=== PATIENT | female | born 1990 | race African-American/Black ===

== ENCOUNTER 2023-05-19 03:37 | Emergency (ER) | payer OTHER, MEDICARE, MEDICAID, SELFPAY ==
--- NOTE | ~2023-05-19 | CT_ITS ---
EXAMINATION: CT ABDOMEN AND PELVIS WITHOUT CONTRAST CLINICAL INFORMATION: Abdominal pain. COMPARISON: X-ray of the abdomen May 2023 TECHNIQUE: Multidetector volumetric imaging was performed from the superior aspect of the liver through the pubic symphysis. Sagittal and coronal reformatted images were obtained on the technologist's workstation. This CT examination was performed using dose optimization techniques as appropriate, variously including the following: *Automated exposure control *Adjustment of mA and/or kV according to patient size (this includes techniques or standardized protocols for targeted exams where dose is matched to indication/reason for exam; i.e. extremities or head) *Use of iterative reconstruction technique DLP: 606 mGy-cm FINDINGS: LUNG BASES: Bibasilar linear opacities likely atelectasis. LIVER, GALLBLADDER, AND BILIARY TREE: The liver is normal in size, shape, and attenuation. No focal hepatic lesion or biliary ductal dilatation is present. Surgical clips noted in the gallbladder fossa compatible cholecystectomy. PANCREAS: Unremarkable. SPLEEN: Unremarkable. ADRENAL GLANDS: Unremarkable. KIDNEYS AND URETERS: The kidneys are normal in size, shape, and attenuation. No hydronephrosis, hydroureter, or calculi seen. No perinephric stranding. BLADDER: The bladder is moderately distended but otherwise unremarkable. GASTROINTESTINAL TRACT: There is pericolonic streaky density surrounding the distal sigmoid and rectum and borderline thickening of the bowel wall. Findings could reflect colitis.. No diverticula The small and large bowel are otherwise unremarkable. The appendix is unremarkable. Stomach normal ABDOMINAL WALL: No significant hernia is appreciated. LYMPH NODES: Normal. VASCULAR: Unremarkable. PELVIC VISCERA: Unremarkable. OSSEOUS STRUCTURES: Mild spondylosis of the partially visualized distal dorsal spine with small endplate osteophytes CT/CT abdomen pelvis wo IV con IMPRESSION: 1. Findings suspicious for colitis involving the distal sigmoid and rectum. 2. Bibasilar linear opacities likely atelectasis. 3. Status post cholecystectomy. 4. Mild spondylosis of the dorsal spine. Fleischner guidelines were followed.
--- NOTE | ~2023-05-19 | XR_ITS ---
EXAMINATION: XR ABDOMEN KUB CLINICAL INDICATION: Constipation. COMPARISON: None available. TECHNIQUE: AP view of the abdomen. FINDINGS: The bowel gas pattern is normal with no evidence of ileus or obstruction. There is retained stool throughout. No unusual soft tissue calcifications are noted. The bones are unremarkable. XR/XR KUB IMPRESSION: Nonspecific bowel gas pattern. Retained stool throughout.
[2023-05-19 03:46] VITALS: BP 128/70; BP 161/93; PULSE 116; RESP 24; TEMP 36.6; O2SAT 100; O2SAT 98; BMI 35.9
[2023-05-19 03:55] VITALS: BP 161/93; PULSE 116; RESP 20; TEMP 36.6; O2SAT 98
[2023-05-19] MEDS: LORazepam 2 MG/ML VIAL 1 MG IVPUSH ×2 (03:59→11:02)
[2023-05-19] MEDS: Sodium Phosphate,Mono-Dibasic 133 ML ENEMA PR (03:59)
[2023-05-19] MEDS: 0.9 % Sodium Chloride 1,000 ML 999 ML IV (04:00)
[2023-05-19] MEDS: Lidocaine HCl 2 % Urojet 10 ML JEL.PF.APP TOPICAL (04:00)
--- NOTE | 2023-05-19 04:06 | ED_ITS ---
HPI - Abdominal Pain General Chief Complaint: Abdominal Pain Stated Complaint: abd pain Time Seen by Provider: 05/19/23 03:39 Source: patient Mode of arrival: EMS Limitations: no limitations History of Present Illness HPI narrative: 33 yo female currently at [facility] of mental health issues and opiate use disorder on methadone 60mg daily who comes in with c/o constipation x 1 week she cannot remember the last time she passed flatus. She notes she has no urinated in several hours but has the urge to go. She reports throughout the day today she was given suppositories and PO medications without BM and now her rectal area is sore and she has pain. She has never had constipation like this before. MD elicited complaint: other (constipation) Pertinent past history: constipation Onset (ago): week(s) (1) Pain Consistency: constant Location: diffuse Severity: moderate Quality: aching, fullness and dull Radiation: none Migration to: no migration Exacerbating factors: movement Relieving factors: nothing Context: history of similar episodes and other (chronic opiate use) Associated symptoms: other (rectal pain, feels she has to urinate but cannot) Treatments prior to arrival: other (OTC laxative use) Related Data Allergies Allergy/AdvReac Type Severity Reaction Status Date / Time No Known Allergies Allergy Unverified 05/23/20 16:25 Review of Systems Review of Systems Constitutional : No Weight loss, No Fever, No Chills Cardiovascular : No Chest Pain, No SOB, No Edema Respiratory : No Cough, No Sputum, No Wheezing Gastrointestinal : no Nausea, no Vomiting, no Diarrhea, positive abdominal Pain, No Hematochezia, No Melena, pos constipation Genitourinary : No Dysuria, No Urinary Frequency, No Hematuria, No Urgency Musculoskeletal : No joint pain, No Myalgias, No Joint Swelling Skin : No Skin Lesions, No rash Neuro : No Weakness, No Numbness, No Dizziness, No Headache Psych : No Anxiety/Panic, No Depression All other systems reviewed and are negative. [facility] Past Medical History Attestation statement: The following information was validated with the patient. Source: old records reviewed Medical History Anxiety Opiate use Surgical History Previous section S/P cholecystectomy Social History Social History Alcohol intake: never Smoked in Last 30 Days: No Use of substances other than those prescribed or required for medical reasons: No Advance Directives: No Advance Directives Information Provided: Yes Patient : No Physical Exam ED Vital Signs: Vital Signs - 24 hr 05/19/23 03:46 05/19/23 03:55 Temperature 98 F 98 F Pulse Rate 116 H 116 H Respiratory Rate 24 H 20 Blood Pressure 161/93 H 161/93 H Pulse Oximetry 98 98 Oxygen Delivery Method Room Air Room Air BMI result Body Mass Index 35.9 Appearance: Alert. Oriented X3. anxious mild acute distress. Eyes: Pupils equal, round and reactive to light. ENT: Pharynx normal. Neck: Normal inspection. Neck supple. CVS: Normal heart rate and rhythm. Pulses normal. Respiratory: No respiratory distress. Breath sounds normal. Abdomen: Soft and mild diffuse ttp, no rebound Rectal: hard impacted stool noted rectal exam no mass or hemorrhoid no erythema on rectum no fluctuance noted patient cannot tolerate exam. Skin: Skin warm and dry. Normal skin color. Normal skin turgor. Extremities: No lower extremity edema. Neuro: Oriented X 3. No motor deficit. No sensory deficit. Course Course Course Narrative: patient not attempting to push - will not tolerate any rectal exam or enema will get CT scan and likely give PO laxatives signed out to Dr. Canchola pending further workup Medical Decision Making Medical Decision Making MDM Narrative: 33 yo female hx of mental health issues and opiate use on methadone 60mg daily hx of and cholecystectomy presents with 1 week of constipation and now with feelings of urinary retention at this time on exam she is impacted but will not allow exam I have ordered labs for lyte abnormality, bladder scan, IVF and IV ativan will give enema and likely obtain CT scan given her degree of pain. Differential Diagnosis Differential Diagnoses: The differential diagnosis associated with the presentation includes constipation, fecal impaction, slow transit, urinary retention, obstruction less likely no n/v Admission/Observation Consideration of admission/observation: Escalation of care including admission/observation considered Lab Data [facility] Lab Attestation statement: I reviewed the patient's lab results. 05/19/23 04:03 05/19/23 04:03 Labs: Lab Results 05/19/23 Range/Units 04:03 WBC 7.7 (4.8-10.8) X10*3/uL RBC 4.37 (4.20-5.50) X10*6/uL Hgb 11.3 L (12.0-16.0) g/dl Hct 32.9 L (37.0-47.0) % MCV 75.3 L (80.0-98.0) fL MCH 25.9 L (27.0-33.0) pg MCHC 34.3 (31.0-35.0) g/dl RDW 13.4 (11.0-16.0) % Plt Count 206 (160-400) X10*3/uL MPV 8.5 L (9.4-12.3) fL Immature Gran % (Auto) 0.3 (0.0-0.4) % Neut % (Auto) 55.6 (45-73) % Lymph % (Auto) 37.3 (20-40) % [place] % (Auto) 4.4 (2-11) % Eos % (Auto) 2.0 (0-4) % Baso % (Auto) 0.4 (0-2) % Lymph # (Auto) 2.9 (1.2-4.9) X10*3/uL [place] # (Auto) 0.3 (0.1-1.2) X10*3/uL Eos # (Auto) 0.2 (0.0-0.4) X10*3/uL Baso # (Auto) 0.0 (0.0-0.2) X10*3/uL Abs Immat Gran (auto) 0.02 (0.00-0.03) X10*3/uL Absolute Neuts (auto) 4.3 (2.0-8.3) x10*3/uL Absolute Nucleated RBC 0.000 (0.0-0.012) X10*3/uL Nucleated RBC % (auto) 0.0 (0.0-0.2) /100WBC Sodium 141 (135-145) mmol/L Potassium 3.9 (3.3-5.1) mmol/L Chloride 100 (96-108) mmol/L Carbon Dioxide 30 H (22-29) mmol/L Anion Gap 15 (12-20) BUN 10 (9-16) mg/dL Creatinine 0.86 (0.5-1.4) mg/dL Estim Creat Clear Calc 107.8 Estimated GFR > 60 Random Glucose 149 H (60-115) mg/dL Calcium 9.5 (8.4-10.2) mg/dL Magnesium 1.9 (1.6-2.6) mg/dL Total Bilirubin 0.2 (0.0-1.0) mg/dL AST 19 (5-31) U/L ALT 29 (0-31) U/L Alkaline Phosphatase 59 (39-117) U/L Total Protein 6.8 (6.5-8.0) g/dL Albumin 3.8 (3.5-5.0) g/dL Independent Interpretation I performed an independent interpretation of an: Plain X-Ray (constipation ) and CT Scan Radiology Impression Discussion of test interpretation with radiology: I have reviewed the radiologist's reading. External Record Review External record reviewed: Outpatient record Medications Administered Generic Name Dose Route Start Last Admin Trade Name Freq PRN Reason Stop Dose Admin Sodium Chloride 1,000 mls @ 999 mls/hr 05/19/23 04:00 05/19/23 04:00 Ns IV 05/19/23 05:00 999 mls/hr .Q1H1M DRAKE Administration Discontinued Medications Generic Name Dose Route Start Last Admin Trade Name Freq PRN Reason Stop Dose Admin Lidocaine HCl 10 ml 05/19/23 03:54 05/19/23 04:00 Lidocaine Hcl 2 % Urojet 10 Ml Jel.Pf.Ayleen TOPICAL 05/19/23 03:55 10 ml ONCE ONE Administration Lorazepam 1 mg 05/19/23 03:55 05/19/23 03:59 Lorazepam 2 Mg/Ml Vial IVPUSH 05/19/23 03:56 1 mg STAT STA Administration Sodium Biphosphate/Sodium Phosphate 133 ml 05/19/23 03:54 05/19/23 03:59 Sodium Phosphate,[place]-Dibasic 133 Ml Enema MI 05/19/23 03:55 133 ml ONCE ONE Administration Discharge Plan Discharge Clinical Impression: Fecal impaction Patient Disposition: Still a Patient
[2023-05-19 04:07] LABS: MANUAL DIFF FLAG NO
[2023-05-19 04:08] LABS: Basophils Percent Auto 0.4 % (0-2); Eosinophils Absolute Auto 0.2 X10*3/uL (0.0-0.4); Hematocrit 32.9 % (37.0-47.0); Hemoglobin 11.3 g/dl (12.0-16.0); Imm Gran Abs Auto 0.02 X10*3/uL (0.00-0.03); Imm Gran Pct Auto 0.3 % (0.0-0.4); Lymphocytes Absolute Auto 2.9 X10*3/uL (1.2-4.9); Lymphocytes Percent Auto 37.3 % (20-40); Mean Corpuscular HGB Conc 34.3 g/dl (31.0-35.0); Mean Corpuscular Hemoglobin 25.9 pg (27.0-33.0); Mean Corpuscular Volume 75.3 fL (80.0-98.0); Mean Platelet Volume 8.5 fL (9.4-12.3); Monocytes Absolute Auto 0.3 X10*3/uL (0.1-1.2); Monocytes Percent Auto 4.4 % (2-11); Neutrophils Absolute Auto 4.3 x10*3/uL (2.0-8.3); Neutrophils Percent Auto 55.6 % (45-73); Platelet Count 206 X10*3/uL (160-400); Red Blood Count 4.37 X10*6/uL (4.20-5.50); Red Cell Distribution Width 13.4 % (11.0-16.0); White Blood Count 7.7 X10*3/uL (4.8-10.8)
[2023-05-19 04:24] LABS: Alanine Aminotransferase 29 U/L (0-31); Albumin Level 3.8 g/dL (3.5-5.0); Alkaline Phosphatase 59 U/L (39-117); Anion Gap 15 (12-20); Aspartate Amino Transferase 19 U/L (5-31); Bilirubin Total 0.2 mg/dL (0.0-1.0); Blood Urea Nitrogen 10 mg/dL (9-16); Calcium 9.5 mg/dL (8.4-10.2); Carbon Dioxide 30 mmol/L (22-29); Chloride 100 mmol/L (96-108); Creatinine Clr Calc Pharmacy 107.8; Estimated Glomerular Filt Rate > 60; Glucose Random 149 mg/dL (60-115); Magnesium 1.9 mg/dL (1.6-2.6); Potassium 3.9 mmol/L (3.3-5.1); Sodium 141 mmol/L (135-145); Total Protein 6.8 g/dL (6.5-8.0)
[2023-05-19 04:49] LABS: HCG Quantitative < 2 mIU/mL
[2023-05-19] MEDS: Lactulose 20 GM/30 ML SOLUTION PO (05:27)
--- NOTE | 2023-05-19 06:02 | PC.NURSE ---
Took over care from TIAGO casas at 5am, pt medicated per Mar, pt sleeping. no sign of distress. Will continue to monitor.
--- NOTE | 2023-05-19 06:24 | PC.NURSE ---
pt taken to CT Scan, Will continue to monitor.
--- OUTSIDE RECORDS SUMMARY | 2023-05-19 06:28 | XMS_ITS | Patient Health Record ---
Author Name Unknown Organization [facility] Address [address] [place], [place] [id number] Care Team Providers Care Bagel Maker Name Role Phone Jaz Zendejas Unavailable [phone] Myrna Ríos Unavailable [phone] Patricia Katie Unavailable [phone] ZZPhillips, ZZClaudia Un[facility] [phone] PROBLEMS Type Condition ICD9-CM Code SBB04-TR Code Onset Dates Condition Status W/U Status Risk SNOMED Code Notes Problem Wart 078.10 confirmed 01594699 Problem OBESITY NOS BMI 30.0-39.9 278.00 confirmed 332792620 Problem COCAINE ABUSE-UNSPE C 305.60 confirmed [id number] Problem BMI 34.0-34.9,A DULT V85.34 confirmed [id number] 24 107 Problem Depressive Disorder NOS 311 confirmed [id number] Problem Bipolar disorder NOS 296.7 confirmed [id number] Problem Tobacco use disorder 305.1 confirmed [id number] Problem OPIOID ABUSE-UNSPE C 305.50 confirmed [id number] ALLERGIES No Known Allergies ENCOUNTERS from 1990 to 2023-05-19 Encounter Location Date Provider Diagnosis [facility] [address] [place] [phone] Jun, Jaz Zendejas [address] [id number] Sep, Myrna Ríos OBESITY NOS BMI 30.0-39.9 278.00 ; BMI 34.0-34.9,ADULT V85.34 ; Lab results reviewed .40 and DIETARY SURVEIL/SOFTWARE TEST SPECIALIST V65.[address] [id number] Aug, Myrna Ríos Candidal vulvovaginitis 112.1 ; SCREEN FOR CONDITION NOS V82.9 ; Influenza Vaccine V04.81 and Tdap V06.8 [facility] [address] [place], [place] [phone] May, ZOralia Hobbs [address] [phone] May, ZZClaudia ZZPhillips OPIOID ABUSE-UNSPEC 305.50 ; HIV counseling V65.44 ; Routine gynecological exam V72.31 ; SCREEN MAL NEOP-CERVIX V76.2 ; SCRN MAL AMY BREAST NOS V76.10 and SCREEN FOR INFEC DIS NOS V75.[address] [phone] May, [facility] 078.[facility] ; OPIOID ABUSE-UNSPEC 305.50 ; Bipolar disorder NOS 296.7 ; Tobacco use disorder 305.1 and SCREEN FOR CONDITION NOS V82.9 IMMUNIZATIONS Vaccine Route Administration Date Status Fluvirin IM Intramuscular Aug 19, 2012 Administere d Tdap IM Intramuscular Aug 19, 2012 Administere d PPD negative Unknown February 19, 2012 Administered SOCIAL HISTORY Sex Assigned At : Social History Observation Description Sex Assigned At Unknown REASON FOR REFERRAL No Information VITAL SIGNS from 1990 to 2023-05-19 Height 65 in Aug, Weight 205 lbs Aug, BMI 34.11 kg/m2 Aug, Respiratory Rate 20 /min May, Blood pressure systolic 104 Aug, Blood pressure diastolic 70 Aug, MEDICATIONS Medication SIG (Take, Route, Fr equency, Duration) Notes Start Date End Date Status Diflucan 150 mg 1 tab(s) orally once for 1 dose(s) Aug, Active RESULTS from 1990 to 2023-05-19 Component Value Reference Range Notes GC, DNA Urine - Life Lab Reviewed date:09/09/2012 13:20:03 Interpretation:neg Performing Lab:[facility], ,[place] [address] Notes/Report: GC DNA Wet [facility] Reviewed date:08/19/2012 14:20:31 Interpretation:neg whiff, + hyphae see procedure note Performing Lab:[facility], ,[place] [address] Notes/Report: Chlamydia, DNA Urine - Life Lab Reviewed date:09/09/2012 13:29:52 Interpretation:neg Performing Lab:[facility], ,[place] [address] Notes/Report: Chlam DNA HSV 1/2 Reviewed date:09/09/2012 13:30:27 Interpretation:HSV 1 +, HSV 2 neg Performing Lab:[facility], ,[place] [address] Notes/Report: REASON FOR VISIT No Information MEDICAL (GENERAL) HISTORY Type Description Date Medical History cocaine and opiate abuse Medical History tobacco user Medical History wart on lip Medical History probable lactose intolerance Surgical History [facility] History [facility] MENTAL STATUS No Information ASSESSMENTS Encounter Date Diagnosis Assessment Notes Treatment Notes Treatment Clinical Notes Sep, OBESITY NOS BMI 30.0-39.9 (ICD9-CM - 278.00) Counseled__10___minute s about obesity and associated risk factors specific to client. Reviewed diet and exercise that client performs now, Advised of healthier food choices, Aerobic exercise 30 min most days of the week. Drink water before each meal--avoid processed foods/soda--single foods best. Eating @ [employer] [facility]--can still make healthier choices with food served ie decreased portion sizes. Will review at next visit. Weight next visit. Reviewed food pyramid and plate method.Agrees with plan. 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 Gc and chlamydia are negative. Time alloted for questions. Sep, DIETARY SURVEIL/SOFTWARE TEST SPECIALIST (ICD9-CM - V65.3) see note under obesity Aug, Candidal vulvovaginitis (ICD9-CM - 112.1) WEt mount + hyphae, , Discussed risks and benefits of new medication; patient gives informed consent to proceed with prescribed treatment, reviewed how to take medication and s/e. Advised to refrain from further sexual activity until she has results of STD testing. Discussed safe sex practices. Aug, SCREEN FOR CONDITION NOS (ICD9-CM - V82.9) Will screen for GC and chlamydia and test for HSV, small lesions noted see exam. Pt to RTC next week for results, agrees with plan. Aug, Influenza Vaccine (ICD9-CM - V04.81) Immunization record given to client with updated vaccines, VIS reviewed. No contraindications for vaccine administration. Given per protocol. No adverse outcome after administration Aug, Tdap (ICD9-CM - V06.8) VIS reviewed. Discussed risks and benefits of vaccine. Agrees to have vaccine. Vaccine given w/o adverse effect Aug, Other Client complete d course of Flagyl and hasn't take psych for 2 mo. Sees someone next week @ [facility] May, OPIOID ABUSE-UNSPEC (ICD9-CM - 305.50) pre and post test counseling done. Supportive counseling re recovery May, HIV counseling (ICD9-CM - V65.44) see opioid abuse May, Routine gynecological exam (ICD9-CM - V72.31) counseled re normal exam May, SCREEN MAL NEOP-CERVIX (ICD9-CM - V76.2) will let pt know when results are returned May, SCRN MAL AMY BREAST NOS (ICD9-CM - V76.10) counseled re normal exam May, SCREEN FOR INFEC DIS NOS (ICD9-CM - V75.9) will let pt know when results are returned May, Other Understands dave n. Allowed to clarify questions about plan. >50% of 30 minute exam spent counseling May, Wart (ICD9-CM - 078.10) Keep appointment with brazing furnace feeder in [place] as scheduled. do not need a referral as client has Medicare. Advised that we can't be pcc because client has medicare as primary insurer. Client requests to go to [facility]. TC to that facility. Client was put on a waiting list and will call weekly to see if any cancellations for pcc. OK with plan. May, OPIOID ABUSE-UNSPEC (ICD9-CM - 305.50) Continue to work your program and avoid persons, places, and things. May, Bipolar disorder NOS (ICD9-CM - 296.7) Continue to go to [facility] and take meds as directed. May, Tobacco use disorder (ICD9-CM - 305.1) Client 1/2 ppd smoker. Not ready to quit now. Aware of health consequences of smoking. May, SCREEN FOR CONDITION NOS (ICD9-CM - V82.9) Needs pap. Scheduled one with [facility] for Wednesday05/16/2012. OK with plan. May, Other Have no Tdap in stock to give to cliuent. Will get Tdap when gets Pap on Wednesday. OK with plan. PLAN OF TREATMENT Treatment Notes Assessment Notes Clinical Notes Tdap VIS reviewed. Discus sed risks and benefits of vaccine. Agrees to have vaccine. Vaccine given w/o adverse effect OPIOID ABUSE-UNSPEC pre and post test co unseling done. Supportive counseling re recovery SCREEN MAL NEOP-CERVIX will let pt know when results are returned Candidal vulvovaginitis WEt mount + hyph ae, , Discussed risks and benefits of new medication; patient gives informed consent to proceed with prescribed treatment, reviewed how to take medication and s/e. Advised to refrain from further sexual activity until she has results of STD testing. Discussed safe sex practices. DIETARY SURVEIL/SOFTWARE TEST SPECIALIST see note under o too To Keep appointment [facility] feeder in [place] as scheduled. do not need a referral as client has Medicare. Advised that we can't be pcc because client has medicare as primary insurer. Client requests to go to [facility]. TC to that facility. Client was put on a waiting list and will call weekly to see if any cancellations for pcc. OK with plan. Tobacco use disorder Client 1/2 ppd smok er. Not ready to quit now. Aware of health consequences of smoking. OBESITY NOS BMI 30.0-39.9 Counseled__10_ __minutes about obesity and associated risk factors specific to client. Reviewed diet and exercise that client performs now, Advised of healthier food choices, Aerobic exercise 30 min most days of the week. Drink water before each meal--avoid processed foods/soda--single foods best. Eating @ [facility]--can still make healthier choices with food served ie decreased portion sizes. Will review at next visit. Weight next visit. Reviewed food pyramid and plate method.Agrees with plan. SCREEN FOR CONDITION NOS Needs pap. Sche duled one with [facility] for Wednesday05/16/2012. OK with plan. HIV counseling see opioid abuse SCRN MAL AMY BREAST NOS counseled re nor mal exam SCREEN FOR CONDITION NOS Will screen for GC and chlamydia and test for HSV, small lesions noted see exam. Pt to RTC next week for results, agrees with plan. OPIOID ABUSE-UNSPEC Continue to work [employer] program and avoid persons, places, and things. 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 Gc and chlamydia are negative. Time alloted for questions. Bipolar disorder NOS Continue to go to [facility] and take meds as directed. BMI 34.0-34.9,ADULT see obesity Routine gynecological exam counseled re normal exam Influenza Vaccine Immunization record given to client with updated vaccines, VIS reviewed. No contraindications for vaccine administration. Given per protocol. No adverse outcome after administration Pending Tests Test Name Order Date HIV Ora Quick Advance 2012-05-16 Insurance Providers Payer Name Payer Address Payer Phone Insured Name Patient Relationship to Insured Coverage Start Date Coverage End Date Subscriber Number Group Number [place] [address] [facility] [phone] Lisa Espinoza Self - patient is the insured [id number] [place] Part [place] [employer] [address] [facility] [address] Lisa Espinoza Self - patient is the insured [id number]
[2023-05-19 06:44] VITALS: BP 126/78; PULSE 98; RESP 16; TEMP 36.7; O2SAT 98
--- NOTE | 2023-05-19 06:56 | PC.NURSE ---
Pt straight cath 800 urine out.
[2023-05-19 08:32] VITALS: BP 127/76; PULSE 93; RESP 16; O2SAT 97
--- NOTE | 2023-05-19 09:19 | PC.NURSE ---
Pt currently appears in NAD, resting quietly on stretcher. VSS. Lab/imaging resulted. Pt produced BM after enema administration. Awaiting provider recommendation. [address] due to elopement risk. WCTA
[2023-05-19 10:53] VITALS: BP 166/95; PULSE 97; RESP 20; TEMP 38.1; O2SAT 97
--- NOTE | 2023-05-19 10:56 | PC.NURSE ---
This RN spoke with Gill ORDOÑEZ at [facility], confirmed patient home medication. Pt last received 60mg Methadone on 05/18 at 0743. Scheduled Clonodine 0.1mg TID, PRN Hydroxizine 25mg Q6H, and Ativan 0.5mg Q2H. Plan for soap suds enema and recheck.
--- NOTE | 2023-05-19 11:32 | PC.NURSE ---
Soap suds enema administered, patient produced large forceful bowel movement. Large well formed BM produced. Pt bedding and clothing changed. Repositioned for comfort, provider notified.
[2023-05-19 12:00] VITALS: BP 131/75; PULSE 67; RESP 18; TEMP 36.8; O2SAT 97
--- NOTE | 2023-05-19 12:15 | PC.NURSE ---
Report called to Gill ORDOÑEZ at [facility].
[2023-05-19] MEDS: methADONE HCl 20 MG/2 ML ORAL.CONC 60 MG PO (12:21)
--- NOTE | 2023-05-19 12:27 | PC.NURSE ---
Pt medicated per NOV; Makayla contacted to confirm Methadone administration. Awaiting transport. VSS.
--- NOTE | 2023-05-19 13:44 | PC.NURSE ---
EMS at bedside; Report given; Preparing patient for transport back to [facility] - report called.
== END 2023-05-19 13:44 | disposition home or self-care (01) ==
PROVIDERS: Emergency Medicine; Emergency Provider Emergency Medicine Emergency Medical Services
DX: K59.00 Constipation, unspecified (principal); R10.9 Unspecified abdominal pain; D50.9 Iron deficiency anemia, unspecified; R33.9 Retention of urine, unspecified; F11.10 Opioid abuse, uncomplicated; Z79.899 Other long term (current) drug therapy
CPT/HCPCS: 36415; 51798; 74018; 74176; 80053; 83735; 84702; 85025; 96361; 96374; 96376; 99285; J2060

== ENCOUNTER 2023-09-17 22:15 | Inpatient (IN) | payer MEDICARE, MEDICAID, SELFPAY ==
--- OUTSIDE RECORDS SUMMARY | 2023-09-17 22:19 | XMS_ITS | Patient Health Record ---
Author Name Unknown Organization [facility] Address [address], [place] [id number] Support Name Relationship Address Phone Antonietta Espinoza Emergency Contact Unknown [phone] Espinoza Guarantor Unknown [phone] REASON FOR REFERRAL No Information MEDICATIONS Medication SIG (Take, Route, Fr equency, Duration) Notes Start Date End Date Status Diflucan 150 mg 1 tab(s) orally once for 1 dose(s) 08/19/2012 Active IMMUNIZATIONS Vaccine Route Administration Date Status Comme nts PPD negative Unknown 02/19/2012 Administered Tdap IM Intramuscular 08/19/2012 Administered Fluvirin IM Intramuscular 08/19/2012 Administered SOCIAL HISTORY Sex Assigned At : Social History Observation Description Sex Assigned At Unknown PROBLEMS Problem Type ICD Code Onset Dates Problem Status W/U Status Risk SNOMED Code Notes Problem COCAINE ABUSE-UNSPEC (305.60) Active confirmed Nondependent cocaine abuse (757340679) Problem OPIOID ABUSE-UNSPEC (305.50) Active confirmed Nondependent opioid abuse (005230550) Problem Tobacco use disorder (305.1) Active confirmed Tobacco use (829218949) Problem Bipolar disorder NOS (296.7) Active confirmed Bipolar disorde r (72099844) Problem Depressive Disorder NOS (311) Active confirmed Depressive disorder (21316983) Problem OBESITY NOS BMI 30.0-39.9 (278.00) Active confirmed Obesity (089622520) Problem Wart (078.10) Active confirmed Wart (57 424125) Problem BMI 34.0-34.9,ADULT (V85.34) Active confirmed Body mass index 30.00 to 34.99 (587866718224190 ) PLAN OF TREATMENT Pending Test Test Name Order Date HIV Ora Quick Advance 05/16/2012 Insurance Providers Payer Name Payer Address Payer Phone Subscriber Number Group Number Insured Name Patient Relationship to Insured Coverage Start Date Coverage End Date [place] Medicaid Standard [address] [place] [address] [id number] Lisa Espinoza Self - patient is the insured [place] Medicare Part A [employer] [address] [place] [address] [id number] Lisa Espinoza Self - patient is the insured MEDICAL (GENERAL) HISTORY Medical History History ICD Code cocaine and opiate abuse tobacco user wart on lip probable lactose intolerance Surgical History Surgery Date(Month/Year) 2009 Hospitalization History Reason Date(Month/Year) [facility] x 2 mo 2012 [facility]
[2023-09-17 22:52] VITALS: BMI 30.2
[2023-09-17 23:22] VITALS: BP 129/85; PULSE 81; RESP 16; TEMP 36.6; O2SAT 97
[2023-09-17 23:23] LABS: Glucose, Whole Blood 137 mg/dL (60-115)
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
--- NOTE | 2023-09-18 05:11 | PC.NURSE ---
Sujey had 1 episode of fecal incontinence on the unit. Patient changed clothing and cleaned up in bathroom.
--- NOTE | 2023-09-18 06:22 | HE.PHANOTE ---
METHADONE CONFIRMATION FORM RECEIVED PATIENT TAKES 70 MG OF METHADONE FROM [facility]. LAST DOSE 70MG ON 09/10
[2023-09-18 07:15] VITALS: BP 132/82; PULSE 91; RESP 18; TEMP 36.7; O2SAT 97
[2023-09-18 08:11] LABS: Alanine Aminotransferase 39 U/L (0-31); Albumin Level 4.6 g/dL (3.5-5.0); Alkaline Phosphatase 73 U/L (39-117); Anion Gap 16 (12-20); Aspartate Amino Transferase 26 U/L (5-31); Bilirubin Total 0.3 mg/dL (0.0-1.0); Blood Urea Nitrogen 25 mg/dL (9-16); Carbon Dioxide 24 mmol/L (22-29); Chloride 102 mmol/L (96-108); Cholesterol 203 mg/dL (<200); Estimated Glomerular Filt Rate > 60; Glucose Fasting 118 mg/dL (60-99); HDL Cholesterol 33 mg/dL (>40); LDL Cholesterol Calculated 126 mg/dL (<100); Potassium 3.7 mmol/L (3.3-5.1); Sodium 138 mmol/L (135-145); Total Protein 8.3 g/dL (6.5-8.0); Triglycerides 220 mg/dL (<150)
[2023-09-18] MEDS: methADONE HCl 20 MG/2 ML ORAL.CONC 70 MG PO (11:46)
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
[2023-09-18] MEDS: hydrOXYzine HCL 25 MG TABLET PO (17:26)
[2023-09-18 17:51] LABS: Glucose, Whole Blood 119 mg/dL (60-115)
[2023-09-18 19:47] LABS: Valproate < 12.5 mcg/mL (50.0-100.0)
[2023-09-18 20:00] VITALS: BP 117/68; PULSE 85; RESP 16; TEMP 36.5; O2SAT 98
[2023-09-19 07:35] VITALS: BP 126/72; PULSE 71; RESP 14; TEMP 36.6; O2SAT 99
[2023-09-19 07:47] LABS: Glucose, Whole Blood 135 mg/dL (60-115)
[2023-09-19] MEDS: methADONE HCl 20 MG/2 ML ORAL.CONC 70 MG PO (08:16)
[2023-09-19] MEDS: hydrOXYzine HCL 25 MG TABLET PO (08:20)
--- NOTE | 2023-09-19 13:48 | HO.PSYCHPN ---
Subjective Subjective Date of Service: 09/19/23 Reason For Visit: unspecified bipolar disorder Subjective Notes: Conditional Voluntary and 3 Day Interim History: The nursing staff reported the patient signed a 3 day notice. She had been visible in the area but she refused to attend 2 groups. She was sleepy yesterday but today in the afternoon she was doing much better she was going to take a shower she denies active suicidal ideation. On interview we discussed options and she agreed to restart Depakote and Abilify. Starting low titration on both medications. Mental Status Exam Mental Status Exam Patient Appearance: Appropriate Patient Orientation: Person Level of Consciousness: Awake Patient Behavior: Guarded and Passive Mood Description: Withdrawn Affect Description: Constricted Patient Cognition Impaired: Yes Ability to Follow Directions: Good Speech Pattern: Clear Hallucinations: None Delusions: Ideas of Reference Thought Process: Distracted and Slowed Thinking Thought Content: positive for [place] and positive for Circumstantial Judgement: Fair Diagnostics Vital Signs (24Hr): Vital Signs - 24 hr 09/18/23 20:00 09/19/23 07:35 Temperature 97.7 F 97.9 F Pulse Rate 85 71 Respiratory Rate 16 14 Blood Pressure 117/68 126/72 Pulse Oximetry 98 99 Oxygen Delivery Method Room Air Room Air BMI result Body Mass Index 30.2 Labs 09/18/23 07:41 Labs: Laboratory Results - last 48 hr 09/17/23 09/18/23 09/18/23 23:17 07:41 17:47 Sodium 138 Potassium 3.7 Chloride 102 Carbon Dioxide 24 Anion Gap 16 BUN 25 H Creatinine 0.86 Estim Creat Clear Calc 95.0 Estimated GFR > 60 POC Glucose 137 H 119 H Fasting Glucose 118 H Calcium 10.0 Total Bilirubin 0.3 AST 26 ALT 39 H Alkaline Phosphatase 73 Total Protein 8.3 H Albumin 4.6 Triglycerides 220 H Cholesterol 203 H LDL Cholesterol, Calc 126 H HDL Cholesterol 33 L Valproic Acid 09/18/23 09/19/23 19:28 07:34 Sodium Potassium Chloride Carbon Dioxide Anion Gap BUN Creatinine Estim Creat Clear Calc Estimated GFR POC Glucose 135 H Fasting Glucose Calcium Total Bilirubin AST ALT Alkaline Phosphatase Total Protein Albumin Triglycerides Cholesterol LDL Cholesterol, Calc HDL Cholesterol Valproic Acid < 12.5 L Medications Medications Current Medications Acetaminophen (Acetaminophen 325 Mg Tablet) 650 mg PO Q6H PRN PRN Reason: Headache/Pain Mild Scale (1-3) Al Hydroxide/Mg Hydroxide (Magnesium Hydrox/Alum Hydrox 30 Ml Oral.Susp) 30 ml PO Q6H PRN PRN Reason: Heartburn/Nausea Aripiprazole (Aripiprazole 5 Mg Tablet) 5 mg PO BEDTIME DRAKE Clotrimazole (Clotrimazole 1 % Vaginal Cream 45 Gm Tube) 1 appl VAGINAL BEDTIME DRAKE Stop: 09/24/23 21:01 Last Admin: 09/18/23 23:05 Dose: Not Given Divalproex Sodium (Divalproex Sodium 250 Mg Tablet.Dr) 250 mg PO TID [facility] Hydroxyzine HCl (Hydroxyzine Hcl 25 Mg Tablet) 25 mg PO Q6H PRN PRN Reason: Anxiety Last Admin: 09/19/23 08:20 Dose: 25 mg Magnesium Hydroxide (Milk Of Magnesia 30 Ml Oral.Susp) 30 ml PO DAILY PRN PRN Reason: Constipation Methadone HCl (Methadone Hcl 20 Mg/2 Ml Oral.Conc) 70 mg PO DAILY [facility] Last Admin: 09/19/23 08:16 Dose: 70 mg Trazodone HCl (Trazodone Hcl 50 Mg Tablet) 50 mg PO BEDTIME MRX1 PRN PRN Reason: Insomnia Allergies Allergies Allergy/AdvReac Type Severity Reaction Status Date / Time No Known Allergies Allergy Unverified 05/23/20 16:25 Assessment & Plan Assessment & Plan (1) Medical clearance for psychiatric admission: Status: Acute Code(s): Z00.8 - Encounter for other general examination Plan Pt is a 33-year-old female with a PMH significant for HTN, dvm-celpwbs-anxwlhdzi diabetes type 2, and opiate use disorder on methadone who is admitted to [facility] unit after being found unresponsive at a bus station in [place]. Patient was given Narcan by security which seemed to induce acute withdrawal. Patient was quite agitated and animated at time of arrival at the hospital, and required physical and chemical restraints. Medical consult for admission H&P. Mood disorder Plan as per Psychiatry Vmf-pfmtpfj-fujtnzquu diabetes type 2 Continue metformin Encourage diabetic diet HTN Continue lisinopril Opiate use disorder Continue methadone Plan as per psychiatry Plan 1. Gather collateral information. 2. September 19 were starting Depakote 250 mg p.o. t.i.d.. 3. On September 19 we are starting Abilify 5 mg p.o. q.h.s. apparently her target dose was 10 mg. Reason for continued inpatient stay Substantial Risk for: inability to function, rapid decompensation and med/psych decompensation Time Spent With Patient Time: Total time managing care of this patient today __20__ minutes.
[2023-09-19] MEDS: Divalproex Sodium 250 MG TABLET.DR PO ×2 (14:19→22:11)
[2023-09-19 20:20] VITALS: BP 125/64; PULSE 75; RESP 16; TEMP 36.4; O2SAT 100
[2023-09-19] MEDS: ARIPiprazole 5 MG TABLET PO (22:11)
[2023-09-20] MEDS: Clotrimazole 1 % Vaginal Cream 45 GM TUBE 1 APPL VAGINAL ×2 (00:55→23:11)
[2023-09-20 08:12] LABS: Glucose, Whole Blood 107 mg/dL (60-115)
[2023-09-20] MEDS: methADONE HCl 20 MG/2 ML ORAL.CONC 70 MG PO (08:39)
[2023-09-20] MEDS: Divalproex Sodium 250 MG TABLET.DR PO ×3 (08:41→22:58)
[2023-09-20 08:53] VITALS: BP 113/63; PULSE 62; RESP 14; TEMP 36.8; O2SAT 97
[2023-09-20] MEDS: hydrOXYzine HCL 25 MG TABLET PO (10:50)
--- NOTE | 2023-09-20 11:57 | HO.PSYCHPN ---
Subjective Subjective Date of Service: 09/20/23 Reason For Visit: unspecified bipolar disorder Subjective Notes: 3 Day Interim History: Reviewed with . Keeping to self. guarded. Pt reports feeling okay today. Pt stated, I feel like the meds are helping. I plan on getting a job when I leave here . She reports sleeping well. denies SI/HI/VH/AH. Labs to be drawn on 09/22/23. Medication Compliance: Yes Attending Groups: Yes Review of Systems Constitutional: Reports as per HPI Eyes: Reports as per HPI Reports as per HPI Cardiovascular: Reports as per HPI Respiratory: Reports as per HPI Gastrointestinal: Reports as per HPI Genitourinary: Reports as per HPI Musculoskeletal: Reports as per HPI Skin/Breast: Reports as per HPI Reports as per HPI Psychiatric: Reports as per HPI Endocrine: Reports as per HPI Hematologic/Lymphatic: Reports as per HPI Allergic/Immunologic: Reports as per HPI Mental Status Exam Mental Status Exam Narrative: Pt is alert and oriented; behavior is calm; dressed in casual attire; mood is described as good ; eye contact appropriate; Speech is normal rate, volume and prosody and not pressured; thought process is organized;denies any SI/HI/VH/AH. Diagnostics Vital Signs (24Hr): Vital Signs - 24 hr 09/19/23 20:20 09/20/23 08:53 Temperature 97.6 F 98.2 F Pulse Rate 75 62 Respiratory Rate 16 14 Blood Pressure 125/64 113/63 Pulse Oximetry 100 97 Oxygen Delivery Method Room Air Room Air BMI result Body Mass Index 30.2 Labs 09/18/23 07:41 Labs: Laboratory Results - last 48 hr 09/18/23 09/18/23 09/19/23 17:47 19:28 07:34 POC Glucose 119 H 135 H Valproic Acid < 12.5 L 09/20/23 07:59 POC Glucose 107 Valproic Acid Medications Medications Current Medications Acetaminophen (Acetaminophen 325 Mg Tablet) 650 mg PO Q6H PRN PRN Reason: Headache/Pain Mild Scale (1-3) Al Hydroxide/Mg Hydroxide (Magnesium Hydrox/Alum Hydrox 30 Ml Oral.Susp) 30 ml PO Q6H PRN PRN Reason: Heartburn/Nausea Aripiprazole (Aripiprazole 5 Mg Tablet) 5 mg PO BEDTIME [facility] Last Admin: 09/19/23 22:11 Dose: 5 mg Clotrimazole (Clotrimazole 1 % Vaginal Cream 45 Gm Tube) 1 appl VAGINAL BEDTIME [facility] Stop: 09/24/23 21:01 Last Admin: 09/20/23 00:55 Dose: 1 appl Divalproex Sodium (Divalproex Sodium 250 Mg Tablet.Dr) 250 mg PO TID [facility] Last Admin: 09/20/23 08:41 Dose: 250 mg Hydroxyzine HCl (Hydroxyzine Hcl 25 Mg Tablet) 25 mg PO Q6H PRN PRN Reason: Anxiety Last Admin: 09/20/23 10:50 Dose: 25 mg Magnesium Hydroxide (Milk Of Magnesia 30 Ml Oral.Susp) 30 ml PO DAILY PRN PRN Reason: Constipation Methadone HCl (Methadone Hcl 20 Mg/2 Ml Oral.Conc) 70 mg PO DAILY [facility] Last Admin: 09/20/23 08:39 Dose: 70 mg Trazodone HCl (Trazodone Hcl 50 Mg Tablet) 50 mg PO BEDTIME MRX1 PRN PRN Reason: Insomnia Allergies Allergies Allergy/AdvReac Type Severity Reaction Status Date / Time No Known Allergies Allergy Unverified 05/23/20 16:25 Assessment & Plan Assessment & Plan (1) Medical clearance for psychiatric admission: Status: Acute Code(s): Z00.8 - Encounter for other general examination Plan Pt is a 33-year-old female with a PMH significant for HTN, zzq-iygijnq-vozobysnc diabetes type 2, and opiate use disorder on methadone who is admitted to [facility] after being [place] un[place] in [place]. Patient was given Narcan by security which seemed to induce acute withdrawal. Patient was quite agitated and animated at time of arrival at the hospital, and required physical and chemical restraints. Medical consult for admission H&P. Mood disorder Plan as per Psychiatry Zlb-aqomuph-xrvopbong diabetes type 2 Continue metformin Encourage diabetic diet HTN Continue lisinopril Opiate use disorder Continue methadone Plan as per psychiatry Plan 1. Gather collateral information. 2. September 19 were starting Depakote 250 mg p.o. t.i.d.. 3. On September 19 we are starting Abilify 5 mg p.o. q.h.s. apparently her target dose was 10 mg. 09/20: Keeping to self. guarded. Pt reports feeling okay today. Pt stated, I feel like the meds are helping. I plan on getting a job when I leave here . She reports sleeping well. denies SI/HI/VH/AH. Labs to be drawn on 09/22/23. Continue current tx plan. Patient educated on: diagnosis and medication risk/benefits Informed Consent: understands Reason for continued inpatient stay Substantial Risk for: med/psych decompensation Time Spent With Patient Time: Total time managing care of this patient today _20___ minutes.
[2023-09-20] MEDS: Nicotine Polacrilex 2 MG GUM BUCCAL (15:17)
[2023-09-20 21:03] LABS: Glucose, Whole Blood 160 mg/dL (60-115)
[2023-09-20 22:53] VITALS: BP 141/95; PULSE 82; RESP 16; TEMP 36.5; O2SAT 96
[2023-09-20] MEDS: ARIPiprazole 5 MG TABLET PO (22:58)
[2023-09-21 07:40] VITALS: BP 118/59; PULSE 70; RESP 16; TEMP 37.1; O2SAT 100
[2023-09-21] MEDS: Divalproex Sodium 250 MG TABLET.DR PO ×3 (08:40→21:59)
[2023-09-21] MEDS: hydrOXYzine HCL 25 MG TABLET PO (08:40)
[2023-09-21] MEDS: methADONE HCl 20 MG/2 ML ORAL.CONC 70 MG PO (08:41)
[2023-09-21 08:42] LABS: Glucose, Whole Blood 112 mg/dL (60-115)
--- NOTE | 2023-09-21 13:31 | P.PNPSI_ITS ---
Subjective Subjective Date of Service: 09/21/23 Reason For Visit: unspecified bipolar disorder Subjective Notes: 3 Day Interim History: Reviewed with keeping to self. guarded, attending groups. medication compliant. Patient reports feeling good today; pt stated, I'm not anxious or depressed. I'm waiting to leave . denies SI/HI/VH/AH. T/W attempted to discuss pt's substance use, pt denied using substances prior to admission despite labs and crisis report. Pt observed falling asleep in chair during the day; pt reports sleeping well at night. Labs to be drawn in the morning. Medication Compliance: Yes Side effects from medications: No Attending Groups: Yes Review of Systems Constitutional: Reports as per HPI Eyes: Reports as per HPI Reports as per HPI Cardiovascular: Reports as per HPI Respiratory: Reports as per HPI Gastrointestinal: Reports as per HPI Genitourinary: Reports as per HPI Musculoskeletal: Reports as per HPI Skin/Breast: Reports as per HPI Reports as per HPI Psychiatric: Reports as per HPI Endocrine: Reports as per HPI Hematologic/Lymphatic: Reports as per HPI Allergic/Immunologic: Reports as per HPI Diagnostics Vital Signs (24Hr): Vital Signs - 24 hr 09/20/23 22:53 09/21/23 07:40 Temperature 97.7 F 98.7 F Pulse Rate 82 70 Respiratory Rate 16 16 Blood Pressure 141/95 H 118/59 L Pulse Oximetry 96 100 Oxygen Delivery Method Room Air Room Air BMI result Body Mass Index 30.2 Labs 09/18/23 07:41 Labs: Laboratory Results - last 48 hr 09/20/23 09/20/23 09/21/23 07:59 19:16 08:24 POC Glucose 107 160 H 112 Medications Medications Current Medications Acetaminophen (Acetaminophen 325 Mg Tablet) 650 mg PO Q6H PRN PRN Reason: Headache/Pain Mild Scale (1-3) Al Hydroxide/Mg Hydroxide (Magnesium Hydrox/Alum Hydrox 30 Ml Oral.Susp) 30 ml PO Q6H PRN PRN Reason: Heartburn/Nausea Aripiprazole (Aripiprazole 5 Mg Tablet) 5 mg PO BEDTIME [facility] Last Admin: 09/20/23 22:58 Dose: 5 mg Clotrimazole (Clotrimazole 1 % Vaginal Cream 45 Gm Tube) 1 appl VAGINAL BEDTIME [facility] Stop: 09/24/23 21:01 Last Admin: 09/20/23 23:11 Dose: 1 appl Divalproex Sodium (Divalproex Sodium 250 Mg Tablet.Dr) 250 mg PO TID [facility] Last Admin: 09/21/23 08:40 Dose: 250 mg Hydroxyzine HCl (Hydroxyzine Hcl 25 Mg Tablet) 25 mg PO Q6H PRN PRN Reason: Anxiety Last Admin: 09/21/23 08:40 Dose: 25 mg Magnesium Hydroxide (Milk Of Magnesia 30 Ml Oral.Susp) 30 ml PO DAILY PRN PRN Reason: Constipation Methadone HCl (Methadone Hcl 20 Mg/2 Ml Oral.Conc) 70 mg PO DAILY [facility] Last Admin: 09/21/23 08:41 Dose: 70 mg Nicotine Polacrilex (Nicotine Polacrilex 2 Mg Gum) 2 mg BUCCAL Q2H PRN PRN Reason: Nicotine Cravings Last Admin: 09/20/23 15:17 Dose: 2 mg Trazodone HCl (Trazodone Hcl 50 Mg Tablet) 50 mg PO BEDTIME MRX1 PRN PRN Reason: Insomnia Allergies Allergies Allergy/AdvReac Type Severity Reaction Status Date / Time No Known Allergies Allergy Unverified 05/23/20 16:25 Assessment & Plan Assessment & Plan (1) Bipolar 1 disorder: Status: Acute Code(s): F31.9 - Bipolar disorder, unspecified (2) Cocaine use: Status: Acute Code(s): F14.90 - Cocaine use, unspecified, uncomplicated (3) Opiate use: Status: Acute Code(s): F11.90 - Opioid use, unspecified, uncomplicated Plan Pt is a 33-year-old female with a PMH significant for HTN, sub-tjrwgje-gjkfvehbm diabetes type 2, and opiate use disorder on methadone who is admitted to [facility] after being found unresponsive at a bus station in [place]. Patient was given Narcan by security which seemed to induce acute withdrawal. Patient was quite agitated and animated at time of arrival at the hospital, and required physical and chemical restraints. Medical consult for admission H&P. Mood disorder Plan as per Psychiatry Prj-roxyvdt-kgqbamdwz diabetes type 2 Continue metformin Encourage diabetic diet HTN Continue lisinopril Opiate use disorder Continue methadone Plan as per psychiatry Plan 1. Gather collateral information. 2. September 19 were starting Depakote 250 mg p.o. t.i.d.. 3. On September 19 we are starting Abilify 5 mg p.o. q.h.s. apparently her target dose was 10 mg. 09/20: Keeping to self. guarded. Pt reports feeling okay today. Pt stated, I feel like the meds are helping. I plan on getting a job when I leave here . She reports sleeping well. denies SI/HI/VH/AH. Labs to be drawn on 09/22/23. Continue current tx plan. 09/21: keeping to self. guarded, attending groups. medication compliant. Patient reports feeling good today; pt stated, I'm not anxious or depressed. I'm waiting to leave . denies SI/HI/VH/AH. T/W attempted to discuss pt's substance use, pt denied using substances prior to admission despite labs and crisis report. Pt observed falling asleep in chair during the day; pt reports sleeping well at night. Labs to be drawn in the morning. Patient educated on: diagnosis, medication risk/benefits, substance abuse and therapeutic strategies Informed Consent: understands Reason for continued inpatient stay Substantial Risk for: med/psych decompensation Time Spent With Patient Time: Total time managing care of this patient today _20___ minutes.
[2023-09-21 20:00] VITALS: BP 141/82; PULSE 75; RESP 18; TEMP 36.2; O2SAT 99
[2023-09-21] MEDS: Clotrimazole 1 % Vaginal Cream 45 GM TUBE 1 APPL VAGINAL (21:59)
[2023-09-21] MEDS: ARIPiprazole 5 MG TABLET PO (21:59)
[2023-09-22 08:00] VITALS: BP 162/72; PULSE 83; RESP 18; TEMP 36.2; O2SAT 98
[2023-09-22 08:19] LABS: Glucose, Whole Blood 113 mg/dL (60-115)
[2023-09-22] MEDS: Divalproex Sodium 250 MG TABLET.DR PO (08:29)
[2023-09-22] MEDS: methADONE HCl 20 MG/2 ML ORAL.CONC 70 MG PO (08:30)
[2023-09-22] MEDS: hydrOXYzine HCL 25 MG TABLET PO ×2 (09:07→21:42)
--- NOTE | 2023-09-22 09:15 | HO.PSYCHPN ---
Subjective Subjective Date of Service: 09/22/23 Reason For Visit: unspecified bipolar disorder Subjective Notes: 3 Day Interim History: Reviewed with keeping to self. guarded, attending groups. medication compliant. Patient reports feeling good today; denies SI/HI/VH/AH. Discussed medications; changing Depakote to Depakote ER 750mg PO bedtime. Valporic Acid level 50.3 today. Pt continues to appear sedated in the morning; pt stated, the methadone makes me really tired . Spoke with addiction medicine, Adilene Nguyen NP, who recommended decreasing dose to Methadone 65mg PO daily. Medication Compliance: Yes Side effects from medications: No Attending Groups: Yes Review of Systems Constitutional: Reports as per HPI Eyes: Reports as per HPI Reports as per HPI Cardiovascular: Reports as per HPI Respiratory: Reports as per HPI Gastrointestinal: Reports as per HPI Genitourinary: Reports as per HPI Musculoskeletal: Reports as per HPI Skin/Breast: Reports as per HPI Reports as per HPI Psychiatric: Reports as per HPI Endocrine: Reports as per HPI Hematologic/Lymphatic: Reports as per HPI Allergic/Immunologic: Reports as per HPI Mental Status Exam Mental Status Exam Narrative: Pt is alert and oriented; behavior is calm; dressed in casual attire; mood is described as good ; eye contact appropriate; Speech is normal rate, volume and prosody and not pressured; thought process is organized;denies SI/HI/VH/AH. Patient Appearance: Appropriate Patient Orientation: Person Level of Consciousness: Awake Patient Behavior: Guarded and Passive Mood Description: Withdrawn Affect Description: Constricted Patient Cognition Impaired: Yes Ability to Follow Directions: Good Speech Pattern: Clear Diagnostics Vital Signs (24Hr): Vital Signs - 24 hr 09/21/23 20:00 09/22/23 08:00 Temperature 97.2 F 97.2 F Pulse Rate 75 83 Respiratory Rate 18 18 Blood Pressure 141/82 H 162/72 H Pulse Oximetry 99 98 Oxygen Delivery Method Room Air Room Air BMI result Body Mass Index 30.2 Labs 09/18/23 07:41 Labs: Laboratory Results - last 48 hr 09/20/23 09/21/23 09/22/23 19:16 08:24 08:14 POC Glucose 160 H 112 113 Medications Medications Current Medications Acetaminophen (Acetaminophen 325 Mg Tablet) 650 mg PO Q6H PRN PRN Reason: Headache/Pain Mild Scale (1-3) Al Hydroxide/Mg Hydroxide (Magnesium Hydrox/Alum Hydrox 30 Ml Oral.Susp) 30 ml PO Q6H PRN PRN Reason: Heartburn/Nausea Aripiprazole (Aripiprazole 5 Mg Tablet) 5 mg PO BEDTIME [facility] Last Admin: 09/21/23 21:59 Dose: 5 mg Clotrimazole (Clotrimazole 1 % Vaginal Cream 45 Gm Tube) 1 appl VAGINAL BEDTIME [facility] Stop: 09/24/23 21:01 Last Admin: 09/21/23 21:59 Dose: 1 appl Divalproex Sodium (Divalproex Sodium 250 Mg Tablet.Dr) 250 mg PO TID [facility] Last Admin: 09/22/23 08:29 Dose: 250 mg Hydroxyzine HCl (Hydroxyzine Hcl 25 Mg Tablet) 25 mg PO Q6H PRN PRN Reason: Anxiety Last Admin: 09/22/23 09:07 Dose: 25 mg Magnesium Hydroxide (Milk Of Magnesia 30 Ml Oral.Susp) 30 ml PO DAILY PRN PRN Reason: Constipation Methadone HCl (Methadone Hcl 20 Mg/2 Ml Oral.Conc) 70 mg PO DAILY [facility] Last Admin: 09/22/23 08:30 Dose: 70 mg Nicotine Polacrilex (Nicotine Polacrilex 2 Mg Gum) 2 mg BUCCAL Q2H PRN PRN Reason: Nicotine Cravings Last Admin: 09/20/23 15:17 Dose: 2 mg Trazodone HCl (Trazodone Hcl 50 Mg Tablet) 50 mg PO BEDTIME MRX1 PRN PRN Reason: Insomnia Allergies Allergies Allergy/AdvReac Type Severity Reaction Status Date / Time No Known Allergies Allergy Unverified 05/23/20 16:25 Assessment & Plan Assessment & Plan (1) Bipolar 1 disorder: Status: Acute Code(s): F31.9 - Bipolar disorder, unspecified (2) Cocaine use: Status: Acute Code(s): F14.90 - Cocaine use, unspecified, uncomplicated (3) Opiate use: Status: Acute Code(s): F11.90 - Opioid use, unspecified, uncomplicated Plan Pt is a 33-year-old female with a PMH significant for HTN, gdx-zlsjphd-ptfyjxmxr diabetes type 2, and opiate use disorder on methadone who is admitted to [facility] after being found unresponsive at a bus [place] in [place]. Patient was given Narcan by security which seemed to induce acute withdrawal. Patient was quite agitated and animated at time of arrival at the hospital, and required physical and chemical restraints. Medical consult for admission H&P. Mood disorder Plan as per Psychiatry Nti-uqfkxug-mjclbjyqh diabetes type 2 Continue metformin Encourage diabetic diet HTN Continue lisinopril Opiate use disorder Continue methadone Plan as per psychiatry Plan 1. Gather collateral information. 2. September 19 were starting Depakote 250 mg p.o. t.i.d.. 3. On September 19 we are starting Abilify 5 mg p.o. q.h.s. apparently her target dose was 10 mg. 09/20: Keeping to self. guarded. Pt reports feeling okay today. Pt stated, I feel like the meds are helping. I plan on getting a job when I leave here . She reports sleeping well. denies SI/HI/VH/AH. Labs to be drawn on 09/22/23. Continue current tx plan. 09/21: keeping to self. guarded, attending groups. medication compliant. Patient reports feeling good today; pt stated, I'm not anxious or depressed. I'm waiting to leave . denies SI/HI/VH/AH. T/W attempted to discuss pt's substance use, pt denied using substances prior to admission despite labs and crisis report. Pt observed falling asleep in chair during the day; pt reports sleeping well at night. Labs to be drawn in the morning. 09/22: keeping to self. guarded, attending groups. medication compliant. Patient reports feeling good today; denies SI/HI/VH/AH. Discussed medications; changing Depakote to Depakote ER 750mg PO bedtime. Valporic Acid level 50.3 today. Pt continues to appear sedated in the morning; pt stated, the methadone makes me really tired . Spoke with addiction medicine, Adilene Nguyen, [facility], who recommended decreasing dose to Methadone 65mg PO daily. Plan to discharge pt home tomorrow on 3 day. Patient educated on: diagnosis, medication risk/benefits, substance abuse and therapeutic strategies Informed Consent: understands Reason for continued inpatient stay Substantial Risk for: stable for discharge Time Spent With Patient Time: Total time managing care of this patient today _30___ minutes.
[2023-09-22 11:23] LABS: Ammonia 30 umol/L (13-55)
[2023-09-22 11:29] LABS: Valproate 50.3 mcg/mL (50.0-100.0)
[2023-09-22 11:33] LABS: Alanine Aminotransferase 36 U/L (0-31); Albumin Level 4.1 g/dL (3.5-5.0); Alkaline Phosphatase 56 U/L (39-117); Aspartate Amino Transferase 15 U/L (5-31); Bilirubin Direct < 0.2 mg/dL (0.0-0.5); Bilirubin Total 0.1 mg/dL (0.0-1.0); Total Protein 7.2 g/dL (6.5-8.0)
[2023-09-22 20:11] VITALS: BP 149/92; PULSE 82; RESP 16; TEMP 36.6; O2SAT 98
[2023-09-22] MEDS: Divalproex Sodium 500 MG TABLET.DR PO (21:38)
[2023-09-22] MEDS: ARIPiprazole 5 MG TABLET PO (21:38)
[2023-09-22] MEDS: Clotrimazole 1 % Vaginal Cream 45 GM TUBE 1 APPL VAGINAL (21:39)
[2023-09-23] MEDS: hydrOXYzine HCL 25 MG TABLET PO (05:17)
[2023-09-23 07:00] VITALS: BMI 32.5
[2023-09-23 07:10] VITALS: BP 144/67; PULSE 84; RESP 14; TEMP 36.6; O2SAT 97
[2023-09-23 07:45] LABS: Glucose, Whole Blood 136 mg/dL (60-115)
[2023-09-23] MEDS: methADONE HCl 20 MG/2 ML ORAL.CONC 65 MG PO (08:44)
--- NOTE | 2023-09-23 09:32 | PM.PSYDC ---
DS: Providers Provider Date of Service: 09/23/23 Date of admission: 09/17/23 22:15 Date of discharge: 09/23/23 Primary care physician: Unknown Physician Attending physician on admission: Mauro Castillo Consults: 09/17/23 23:06 Consult to Hospitalist Routine Comment: Consulting Provider: Hospitalist Reason For Exam: Direct admission Attending physician on discharge: Mateusz Lawson Discharging clinician: Radha Malloy DS: Diagnosis Discharge Diagnosis (1) Bipolar 1 disorder: Status: Acute (2) Cocaine use: Status: Acute (3) Opiate use: Status: Acute DS: Medications Discharge Medications Home Medications: Home Medications Medication Instructions Recorded Confirmed aripiprazole 10 mg tablet 10 mg PO DAILY 09/17/23 09/17/23 clonazepam 0.5 mg tablet 0.5 mg PO DAILY 09/17/23 09/17/23 divalproex 125 mg tablet,delayed PO 09/17/23 release fluoxetine 20 mg capsule 20 mg PO DAILY 09/17/23 09/17/23 gabapentin 300 mg capsule PO 09/17/23 lisinopril 5 mg tablet 5 mg PO DAILY 09/17/23 09/17/23 metformin 500 mg tablet 500 mg PO BID 09/17/23 09/17/23 methadone 10 mg tablet 70 mg PO DAILY 09/17/23 09/17/23 nifedipine 30 mg tablet,extended PO 09/17/23 release 24 hr risperidone 2 mg tablet 2 mg PO BEDTIME 09/17/23 09/17/23 trazodone 50 mg tablet 50 mg PO BEDTIME 09/17/23 09/17/23 Previous Rx's Medication Instructions Recorded docusate sodium 100 mg capsule 100 mg PO BID #60 caps 05/19/23 (Colace) miconazole nitrate 2 % vaginal 1 appful vaginal BEDTIME 7 days 05/19/23 cream (Monistat 7) #45 grams polyethylene glycol 3350 17 17 g PO DAILY 2 weeks #238 grams 05/19/23 gram/dose oral powder (Miralax) sennosides 17.2 mg tablet (Senokot 17.2 mg PO BID PRN constipation 2 05/19/23 Extra Strength) weeks #20 tabs Mental Status Exam Mental Status Exam Narrative: Pt is alert and oriented; behavior is cooperative and calm; dressed in casual attire; mood is described as good ; eye contact appropriate; Speech is normal rate, volume and prosody and not pressured; thought process is organized; Thought content is on discharge; otherwise pertinent to relevant topics and without any delusional content, paranoid ideations or grandiosity; denies SI/HI/VH/AH. Data Data Completed and Pending Completed studies during hospitalization [Text1]: 09/17/23 09/18/23 09/18/23 23:17 07:41 17:47 Sodium 138 Potassium 3.7 Chloride 102 Carbon Dioxide 24 Anion Gap 16 BUN 25 H Creatinine 0.86 Estim Creat Clear Calc 95.0 Estimated GFR > 60 POC Glucose 137 H 119 H Fasting Glucose 118 H Calcium 10.0 Total Bilirubin 0.3 Direct Bilirubin AST 26 ALT 39 H Alkaline Phosphatase 73 Ammonia Total Protein 8.3 H Albumin 4.6 Triglycerides 220 H Cholesterol 203 H LDL Cholesterol, Calc 126 H HDL Cholesterol 33 L Valproic Acid 09/18/23 09/19/23 09/20/23 19:28 07:34 07:59 Sodium Potassium Chloride Carbon Dioxide Anion Gap BUN Creatinine Estim Creat Clear Calc Estimated GFR POC Glucose 135 H 107 Fasting Glucose Calcium Total Bilirubin Direct Bilirubin AST ALT Alkaline Phosphatase Ammonia Total Protein Albumin Triglycerides Cholesterol LDL Cholesterol, Calc HDL Cholesterol Valproic Acid < 12.5 L 09/20/23 09/21/23 09/22/23 19:16 08:24 08:14 Sodium Potassium Chloride Carbon Dioxide Anion Gap BUN Creatinine Estim Creat Clear Calc Estimated GFR POC Glucose 160 H 112 113 Fasting Glucose Calcium Total Bilirubin Direct Bilirubin AST ALT Alkaline Phosphatase Ammonia Total Protein Albumin Triglycerides Cholesterol LDL Cholesterol, Calc HDL Cholesterol Valproic Acid 09/22/23 09/23/23 11:11 07:41 Sodium Potassium Chloride Carbon Dioxide Anion Gap BUN Creatinine Estim Creat Clear Calc Estimated GFR POC Glucose 136 H Fasting Glucose Calcium Total Bilirubin 0.1 Direct Bilirubin < 0.2 AST 15 ALT 36 H Alkaline Phosphatase 56 Ammonia 30 Total Protein 7.2 Albumin 4.1 Triglycerides Cholesterol LDL Cholesterol, Calc HDL Cholesterol Valproic Acid 50.3 DS: Summary Hospital Course Hospital Course: The patient is a 33-year-old female, transferred from the emergency room of [facility] after she was [place] bus [place] with altered mental status. According to the crisis assessment at [facility], the patient overdosed on opioids and other pills, she was rushed to the emergency room medically cleared. Apparently she needed Narcan since the patient has a past history of opiate use disorder and she is on methadone treatment. While she was in the emergency room, she stayed over there for more than 6 days and later on she was able to disclosed that she took a lot of pills since her family was throwing animals at her. She was nonsensical and delusional. She was reassessed by the crisis team and transferring to this facility for psychiatric stabilization. On admission, the patient refused to engage in conversation she was more worried about her dose of methadone that was confirmed on 70 mg. Apparently the patient had been assessed by crisis a few months ago last year. She carries a diagnosis of opiate use disorder she follows methadone treatment at [facility] in [place] and it seems that she was noncompliant with her medications. According to the medication reconciliation form, the patient was prescribed Depakote and Abilify but she was noncompliant. Apparently there is a suspicion that she overdosed on Depakote too. We will do a Depakote level tomorrow morning. The patient had been a very poor historian we will try to gather collateral information. This moment she is lying on bed sleeping refusing to engage in group activities. During hospital course, September 19 were starting Depakote 250 mg p.o. t.i.d.. On September 19 we are starting Abilify 5 mg p.o. q.h.s. apparently her target dose was 10 mg. Keeping to self. guarded. Pt reports feeling okay today. Pt stated, I feel like the meds are helping. I plan on getting a job when I leave here . She reports sleeping well. denies SI/HI/VH/AH. Labs to be drawn on 09/22/23. Continue current tx plan. keeping to self. guarded, attending groups. medication compliant. Patient reports feeling good today; pt stated, I'm not anxious or depressed. I'm waiting to leave . denies SI/HI/VH/AH. T/W attempted to discuss pt's substance use, pt denied using substances prior to admission despite labs and crisis report. Pt observed falling asleep in chair during the day; pt reports sleeping well at night. Labs to be drawn in the morning. keeping to self. guarded, attending groups. medication compliant. Patient reports feeling good today; denies SI/HI/VH/AH. Discussed medications; changing Depakote to Depakote ER 750mg PO bedtime. Valporic Acid level 50.3 today. Pt continues to appear sedated in the morning; pt stated, the methadone makes me really tired . Spoke with addiction medicine, Adilene Nguyen, [employer], who recommended decreasing dose to Methadone 65mg PO daily. Plan to discharge pt home on 3 day. Pt reports she plans on following up with outpatient providers. Time spent discussing smoking cessation with patient: 3 to 10 minutes Status at Discharge Cognitive/behavioral status at discharge: Patient was interviewed prior to discharge and found to be fully oriented and without any SI or HI. Patient has insight and demonstrates good judgment in terms of wanting to pursue treatment. Patient is not in imminent risk of harm to self or others and has a safety plan that includes presenting to the closest ER or calling 911 if feeling unsafe. Patient has been observed closely by nursing and unit staff throughout admission; patient has not engaged in any behaviors that suggest dangerousness to self or others and has demonstrated appropriate behaviors and impulse control. Functional status at discharge: independent ambulation Overall status at discharge: patient is back to baseline Time Spent with Patient Time attestation: Total time managing care of this patient today _30___ minutes. Time spent: Less than 30 minutes Discharge Plan Discharge Anticipated Discharge Date/Time: 09/23/23 11:00 Patient Disposition: Home, Self-Care Discharge Diagnosis: Bipolar d/o, opiate use d/o, cocaine use d/o Referrals: Keesha Noguera (Therapy) [Other] - 09/24/23 2:00 pm (IN OFFICE APPOINTMENT -Please arrive fifteen minutes early to your appointment in order to fill out necessary paperwork. ) Aracely Boggs (Psychiatry) [Other] - 10/25/23 11:00 am (TELEHEALTH APPOINTMENT -Psychiatric Evaluation ) Aracely Boggs (Psychiatry) [Other] - 11/23/23 11:00 am (TELEHEALTH APPOINTMENT -Medication Management ) [facility] [Provider Group] - 1 Week (May use walk in clinic as needed for immediate medical attention) Discharge Medications: New aripiprazole [Abilify] 5 mg Tablet 5 mg PO BEDTIME 30 Days Qty: 30 0RF clotrimazole 1 % Cream 1 appl vaginal BEDTIME Qty: 0 0RF divalproex 250 mg Tablet Extended Release 24 Hr 750 mg PO BEDTIME 30 Days Qty: 90 0RF methadone [Methadose] 10 mg/mL Concentrate 65 mg PO DAILY Qty: 0 0RF Rx Instructions: Partial Fill upon patient request. Continued nifedipine 30 mg tablet extended release 24hr PO Rx Instructions: [facility] increased dose to 60 mg while in their care. metformin 500 mg tablet 500 mg PO BID lisinopril 5 mg tablet 5 mg PO DAILY docusate sodium [Colace] 100 mg capsule 100 mg PO BID Qty: 60 0RF Discontinued trazodone 50 mg tablet 50 mg PO BEDTIME clonazepam 0.5 mg tablet 0.5 mg PO DAILY risperidone 2 mg tablet 2 mg PO BEDTIME divalproex 125 mg tablet,delayed release (DR/EC) PO gabapentin 300 mg capsule PO fluoxetine 20 mg capsule 20 mg PO DAILY aripiprazole 10 mg tablet 10 mg PO DAILY methadone 10 mg Tablet 70 mg PO DAILY Patient Comments: [facility] confirmed dose last taken was 70mg on 09/10/2023 at [facility]. polyethylene glycol 3350 [Miralax] 17 gram/dose powder 17 g PO DAILY 14 Days Qty: 238 0RF Senokot Extra Strength 17.2 mg tablet 17.2 mg PO BID PRN (Reason: constipation) 14 Days Qty: 20 0RF miconazole nitrate [Monistat 7] 2 % cream 1 appful vaginal BEDTIME 7 Days Qty: 45 0RF Discharge Orders: Discharge Order (Routine); Ordered 09/23/23 Ordered By: Radha Malloy Diet: Regular diet Activity on Discharge: As tolerated Stand Alone Forms: Patient Portal Discharge page, Community Support Care Plan Goals: Maintain mood and safe behaviors Take medications as prescribed Continue to pursue sobriety Practice coping skills Continue with outpatient providers and reach out to them as needed Health Concerns: Mood stability and behaviors Sobriety Plan of Treatment: Follow up with your PCP, psychiatric provider and other outpatient providers regarding above concerns Take medications as prescribed Assessment: Patient was interviewed prior to discharge and found to be fully oriented and without any SI or HI. Patient is not in imminent risk of harm to self or others and has a safety plan that includes presenting to the closest ER or calling 911 if feeling unsafe. Patient has been observed closely by nursing and unit staff throughout admission; patient has not engaged in any behaviors that suggest dangerousness to self or others and has demonstrated appropriate behaviors and impulse control. Discharge Date/Time: 09/23/23 11:25
--- NOTE | 2023-09-23 12:04 | PC.NURSE ---
Patient easily engaged. Reports mood is stable, denies depression or sadness, denies SI/HI plan or intent. Denies perceptual disturbances, no overt psychosis or expressed delusions. Patient discharge paperwork reviewed, reports understanding. Follow up appointments reviewed, reports understanding. Medications reviewed, reports understanding. States she is planning to go to [facility] following discharge. Personal belongings taken with patient. Last dose letter faxed to [facility].
== END 2023-09-23 11:25 | disposition home or self-care (01) | DRG 885 ==
PROVIDERS: Psychiatry & Neurology Psychiatry; Admitting Provider Psychiatry & Neurology Psychiatry; Responsible Provider Registered Nurse; Visit Provider Psychiatry & Neurology Psychiatry
DX: F31.9 Bipolar disorder, unspecified (principal); F11.20 Opioid dependence, uncomplicated; F14.90 Cocaine use, unspecified, uncomplicated; I10 Essential (primary) hypertension; E11.9 Type 2 diabetes mellitus without complications; Z79.84 Long term (current) use of oral hypoglycemic drugs; Z79.899 Other long term (current) drug therapy
CPT/HCPCS: 36415; 80053; 80061; 80076; 80164; 82140; 82947

== ENCOUNTER → 2023-09-17 22:15 | Outpatient (BNV) | payer MEDICARE, MEDICAID, SELFPAY | PROVIDERS: Admitting Provider Psychiatry & Neurology Psychiatry; Visit Provider Student in an Organized Health Care Education/Training Program | DX: Z02.2 Encounter for examination for admission to residential institution (principal) | CPT/HCPCS: 99429 ==

== ENCOUNTER → 2023-09-17 22:15 | Outpatient (BNV) | payer MEDICARE, MEDICAID, SELFPAY | PROVIDERS: Admitting Provider Psychiatry & Neurology Psychiatry; Visit Provider Psychiatry & Neurology Psychiatry | DX: F31.2 Bipolar disorder, current episode manic severe with psychotic features (principal); F14.90 Cocaine use, unspecified, uncomplicated; F11.90 Opioid use, unspecified, uncomplicated | CPT/HCPCS: 90792; 99231; 99232; 99238 ==

== ENCOUNTER 2025-03-01 09:59 | Emergency (ER) | payer MEDICARE, MEDICAID, SELFPAY ==
[2025-03-01 10:13] VITALS: BP 135/89; PULSE 89; RESP 16; TEMP 37.2; O2SAT 100; BMI 38.4
--- NOTE | 2025-03-01 10:25 | ED_ITS ---
HPI - General Adult General Chief complaint: Eye Problems Stated complaint: eye issue Time Seen by Provider: 03/01/25 10:25 Source: patient, RN notes reviewed and old records reviewed Mode of arrival: ambulatory Limitations: no limitations History of Present Illness ED Provider: Isreal HPI narrative: Patient is a 34-year-old female contact lens wear presenting to the emergency department with complaint of right eye irritation and foreign body sensation. States that she feels she may have scratched her eye when putting on her false eyelashes. Reports some blurred vision but also is not currently wearing her contact lenses. Reports discomfort and foreign body sensation but denies pain. Reports some watery drainage. MD complaint: eye irritation Related Data Home Medications ?Medication ?Instructions ?Recorded ?Confirmed lisinopril 5 mg tablet 5 mg PO DAILY 09/17/2309/17 metformin 500 mg tablet 500 mg PO BID 09/17/2309/17 nifedipine 30 mg tablet,extended PO 09/17/23 release 24 hr Previous Rx's ?Medication ?Instructions ?Recorded docusate sodium 100 mg capsule 100 mg PO BID #60 caps 05/19/23 (Colace) aripiprazole 5 mg tablet (Abilify) 5 mg PO BEDTIME 30 days #30 tabs 09/23/23 clotrimazole 1 % vaginal cream 1 appl vaginal BEDTIME #0 grams 09/23/23 divalproex 250 mg tablet,extended 750 mg (3 x 250 mg) PO BEDTIME 30 09/23/23 release 24 hr days #90 tabs methadone 10 mg/mL oral 65 mg (6.5 mL) PO DAILY #0 m L 09/23/23 concentrate (Methadose) ciprofloxacin HCl 0.3 % eye drops 2 drp ophthalmic-Rig ht QID 5 days 03/01/25 #2.5 mL Allergies Allergy/AdvReac Type Severity Reaction Status Date / Time No Known Allergies Allergy Verified 03/01/25 10:15 Review of Systems Review of Systems: as per hpi Yes all other systems are reviewed and are negative Constitutional: Constitutional: Reports as per HPI [facility] Past Medical History Medical History (Updated 03/01/25 @ 10:57 by Beverly Bach NP) Medical clearance for psychiatric admission Opiate dependence Mood disorder Anxiety Opiate use Surgical History Previous section S/P cholecystectomy Social History Social History Household Members: Unknown / Unable to assess Housing: Unknown / Unable to assess Do you presently have visiting nurse or other home services: No Alcohol intake: never Patient Tobacco Use Status: Former Tobacco user Smoked in Last 30 Days: Yes e-Cigarette/Vaping Use: Former Use Second Hand Smoke Exposure: Yes Use of substances other than those prescribed or required for medical reasons: No Substance Use Type: Crack/Cocaine Advance Directives: No Advance Directives Information Provided: No Do you have a plan to hurt others: No Plan service: No Sexual orientation: Unable to collect Physical Exam ED Vital Signs: Vital Signs - 24 hr 03/01/25 10:13 Temperature 98.9 F Pulse Rate 89 Respiratory Rate 16 Blood Pressure 135/89 Pulse Oximetry 100 Oxygen Delivery Method Room Air BMI result Body Mass Index 38.4 Vital signs have been reviewed and appear to be correct. Blood pressure normal. Heart rate normal. Respiratory rate normal. Temperature normal. Oxygen saturation normal. Const General: cooperative, healthy appearing and no acute distress Orientation/consciousness: oriented to person, oriented to place, oriented to time and patient oriented x3 Limitations: no limitations HENMT Head: Yes normocephalic and Yes atraumatic Ears: external ears normal General nose exam: Normal external nose present Face and sinus: Yes face symmetric Mouth: oropharynx normal and moist mucous membranes Throat: Yes uvula midline Eyes Corneas: corneas abnormal on the right fluorescein used and abrasion linear (2mm) and other (vertical across center of cornea); no contact lens present and fluorescein used Pupils: Equal, round and reactive pupils present EOM: EOMs intact bilaterally Neck Neck: Yes normal visual inspection and Yes supple Resp Effort & Inspection: normal respiratory effort and able to speak in complete sentences Auscultation: clear to auscultation bilaterally Cardio Rate: regular rate Rhythm: regular rhythm Heart sounds: S1 normal heart sound present and S2 normal heart sound present Skin General skin exam: elasticity normal and turgor normal Neuro General: oriented to person, oriented to place, oriented to time, patient oriented x3, moves all extremities, no focal motor deficits and CN's II-XI intact bilaterally Cranial nerves: Yes Equal, round and reactive pupils present Cognition (Neuro): normal cognition Extrem General: Yes full ROM, Yes no pedal edema and Yes no calf tenderness Psych Mental Status: mental status grossly normal Affect: normal affect Thought process: Normal thought process present Medications Administered Discontinued Medications Generic Name Dose Route Start Last Admin Trade Name Fariba PRN Reason Stop Dose Admin Fluorescein Sodium 1 strip 03/01/25 10:25 03/01/25 10:36 Fluorescein Sodium Strip EYE-RIGHT 03/01/25 10:26 1 strip ONCE ONE Administration Medical Decision Making Medical Decision Making [facility] Narrative: Patient is a 34-year-old female contact lens wear presenting to the emergency department with complaint of right eye irritation and foreign body sensation. On exam patient is awake, A+Ox3, VS WNL, afebrile, normal neurological exam without focal deficits, physical exam findings as above. Given reported symptoms and physical exam findings, initial differential includes but is not limited to foreign body right eye, corneal abrasion, conjunctivitis. Corneal abrasion noted on Wood's lamp exam with fluorescein stain. No foreign body visible. Results discussed with patient. Will treat with ciprofloxacin eyedrops as patient wears contact lenses. Advised patient to avoid touching or rubbing eyes, can use Tylenol or ibuprofen as needed for pain. Follow up with portable track line marker as needed. Return precautions discussed. Patient verbalized understanding of and agreement with plan. Differential Diagnosis Differential Diagnoses: The differential diagnosis associated with the presentation includes As per [facility] Admission/Observation Consideration of admission/observation: Escalation of care including admission/observation considered Patient would have been admitted to the hospital had their work up had any findings where hospital admission was appropriate and their clinical presentation warranted hospital admission. External Record Review External record reviewed: Inpatient record, Office record and Outpatient record Prescription Management I considered prescription management with: Antibiotic Discharge Plan Discharge Clinical Impression: Corneal abrasion Patient Disposition: Home, Self-Care Instructions: Corneal Abrasion (DC), Ciprofloxacin (Into the eye) Additional Instructions: You were evaluated in the emergency department today for eye redness and irritation. Your evaluation showed evidence of a corneal abrasion scratch to the surface of your eye. This will heal on its own over the next few days. You are being prescribed topical antibiotic drops to prevent infection. Avoid touching or rubbing your eyes. You should perform good hand hygiene/hand washing prior to and after touching your eyes or administering the medication. Follow-up with the portable track line marker for any ongoing symptoms to the emergency department if you develop worsening redness, swelling, thick yellow drainage, changes in vision, or any other new or concerning symptoms. Prescriptions: New ciprofloxacin HCl 0.3 % drops 2 drp ophthalmic-Right QID 5 Days Qty: 2.5 0RF Rx Instructions: administer while awake No Action nifedipine 30 mg tablet extended release 24hr PO Rx Instructions: [facility] increased dose to 60 mg while in their care. metformin 500 mg tablet 500 mg PO BID lisinopril 5 mg tablet 5 mg PO DAILY aripiprazole [Abilify] 5 mg Tablet 5 mg PO BEDTIME 30 Days Qty: 30 0RF clotrimazole 1 % Cream 1 appl vaginal BEDTIME Qty: 0 0RF divalproex 250 mg Tablet Extended Release 24 Hr 750 mg PO BEDTIME 30 Days Qty: 90 0RF methadone [Methadose] 10 mg/mL Concentrate 65 mg PO DAILY Qty: 0 0RF Rx Instructions: Partial Fill upon patient request. docusate sodium [Colace] 100 mg capsule 100 mg PO BID Qty: 60 0RF Referrals: Felton King [Physician, Ophthalmology] Print Language: Guatemalan
[2025-03-01] MEDS: Fluorescein Sodium STRIP 1 STRIP EYE-RIGHT (10:36)
--- NOTE | 2025-03-01 10:48 | MHC.EDTECH ---
visual acuity test performed, patient unable to open rt eye provider aware
[2025-03-01 11:22] VITALS: BP 135/89; PULSE 89; RESP 16; TEMP 37.2; O2SAT 100
--- OUTSIDE RECORDS SUMMARY | 2025-03-01 12:27 | XMS_ITS | Encounter Summary ---
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 Social History Tobacco Use Types Packs/Day Years Used Date Smoking Tobacco: Never Smokeless Tobacco: Never Alcohol Use Standard Drinks/Week Comments Yes 0 (1 standard drink = 0.6 oz pur e alcohol) Comments Unknown Sex and Gender Information Value Date Recorded Sex Assigned at Female 07/18/2024 11:27 AM EST Legal Sex Female 5:38 AM EST Gender Identity Female 07/18/2024 11:27 AM EST Sexual Orientation Straight 07/18/2024 11 :27 AM EST documented as of this encounter Plan of Treatment Not on file documented as of this encounter Procedures Procedure Name Priority Date/Time Associated Diagnosis Comments LIPID PANEL WITH REFLEX TO DIRECT LDL Routine 07/20/2024 7:31 AM EST [facility] (current[facility] drug therapy HEMOGLOBIN A1C Routine 07/20/2024 7:31 AM EST Other jail (current) drug therapy documented in this encounter Results * (ABNORMAL) Lipid panel with reflex to direct LDL (07/20/2024 7:31 AM EST) Cholesterol 216(H) 0 - 200 mg/dL LAB CHEMISTRY METHOD 07/20/2024 1:14 PM EST [facility] Triglycerides 115 0 - 150 mg/dL LAB CHEMISTRY METHOD 07/20/2024 1:14 PM EST [facility] HDL 50 >=40 mg/dL LAB CHEMISTRY METHOD 07/20/2024 1:14 PM EST [facility] LDL Calculated 143(H) 0 - 100 mg/dL LAB CHEMISTRY METHOD 07/20/2024 1:14 PM EST [facility] VLDL Cholesterol Charly 23 mg/dL LAB CHEMISTRY METHOD 07/20/2024 1:14 PM [facility] Non HDL Chol. (LDL+VLDL) 166(H) <145 mg/dL LAB CHEMISTRY METHOD 07/20/2024 1:14 PM [facility] Chol/HDL Ratio 4.3 0.0 - 4.4 LAB CHEMISTRY METHOD 07/20/2024 1:14 PM [facility] Blood Venous blood specimen / Unknown 07/20/2024 7:31 AM EST 07/20/2024 10:56 AM EST us Francesca Camara RN NEUROLOGY LAB BLOOD ORDERABLES Fi nal Result [facility] [address] [place] [address], * (ABNORMAL) Hemoglobin A1c (07/20/2024 7:31 AM EST) Hemoglobin A1C 7.3(H) <6.5 % LAB CHEMISTRY METHOD 07/20/2024 10:30 PM EST [facility] Mean Bld Glu Estim. 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
== END 2025-03-01 11:22 | disposition home or self-care (01) ==
PROVIDERS: Emergency Provider Emergency Medicine
DX: S05.01XA Injury of conjunctiva and corneal abrasion without foreign body, right eye, initial encounter (principal); X58.XXXA Exposure to other specified factors, initial encounter; Y93.9 Activity, unspecified; Y92.9 Unspecified place or not applicable; Y99.8 Other external cause status; Z87.891 Personal history of nicotine dependence
CPT/HCPCS: 99283; 99284

== ENCOUNTER 2025-03-03 09:33 | Emergency (ER) | payer MEDICARE, MEDICAID, SELFPAY ==
[2025-03-03 09:37] VITALS: BP 134/78; PULSE 89; RESP 18; TEMP 36.7; O2SAT 100; BMI 38.4
--- NOTE | 2025-03-03 10:25 | PC.NURSE ---
Chance boykin stating that patient did not have active insurance and that is why script was not delivered. Pharmacy updated insurance info and states that script would be sent mon or tue to [facility] in [place]. 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
[2025-03-03 10:39] VITALS: BP 142/88; PULSE 73; RESP 16; TEMP 36.8; O2SAT 100
--- NOTE | 2025-03-03 10:41 | ED.GENADULT ---
HPI - General Adult General Chief complaint: General Medical Stated complaint: needs her suboxone Time Seen by Provider: 03/03/25 09:54 Source: patient Mode of arrival: ambulatory Limitations: no limitations History of Present Illness ED Provider: Francy Linn NP HPI narrative: Patient is a 34 year old female who presents emergency department for evaluation, she is requesting assistance with Suboxone dosing. She states that she last saw her prescriber; [facility] [place] 02/27/2025, states prescription for Suboxone 8 mg films for total of 3 to be taken daily was sent to do normal pharmacy in [place] but has yet to be delivered. She is not taking the Suboxone in the past few days. Denies recreational drug or alcohol usage. Related Data Home Medications ?Medication ?Instructions ?Recorded ?Confirmed lisinopril 5 mg tablet 5 mg PO DAILY 09/17/23 09/17/23 metformin 500 mg tablet 500 mg PO BID 09/17/23 09/17/23 nifedipine 30 mg tablet,extended PO 09/17/23 release 24 hr Previous Rx's ?Medication ?Instructions ?Recorded docusate sodium 100 mg capsule 100 mg PO BID #60 caps 05/19/23 (Colace) aripiprazole 5 mg tablet (Abilify) 5 mg PO BEDTIME 30 days #30 tabs 09/23/23 clotrimazole 1 % vaginal cream 1 appl vaginal BEDTIME #0 grams 09/23/23 divalproex 250 mg tablet,extended 750 mg (3 x 250 mg) PO BEDTIME 30 09/23/23 release 24 hr days #90 tabs methadone 10 mg/mL oral 65 mg (6.5 mL) PO DAILY #0 mL 09/23/23 concentrate (Methadose) ciprofloxacin HCl 0.3 % eye drops 2 drp ophthalmic-Right QID 5 days 03/01/25 #2.5 mL buprenorphine 8 mg-naloxone 2 mg 3 film buccal DAILY 2 days #6 ea 03/03/25 sublingual film (Suboxone) Allergies Allergy/AdvReac Type Severity Reaction Status Date / Time No Known Allergies Allergy Verified 03/03/25 09:39 Review of Systems Review of Systems: Yes all other systems are reviewed and are negative PMFSH Past Medical History Attestation statement: The following information was validated with the patient. Source: old records reviewed Medical History Medical clearance for psychiatric admission Opiate dependence Mood disorder Anxiety Opiate use Surgical History Previous section S/P cholecystectomy Social History Social History Household Members: Unknown / Unable to assess Housing: Unknown / Unable to assess Do you presently have visiting nurse or other home services: No Alcohol intake: never Patient Tobacco Use Status: Former Tobacco user e-Cigarette/Vaping Use: Former Use Second Hand Smoke Exposure: Yes Substance Use Type: Crack/Cocaine Advance Directives: No Advance Directives Information Provided: Yes Do you have a plan to hurt others: No Plan service: No Sexual orientation: Unable to collect Physical Exam ED Vital Signs: Vital Signs - 24 hr 03/03/25 09:37 03/03/25 10:39 Temperature 98.1 F 98.3 F Pulse Rate 89 73 Respiratory Rate 18 16 Blood Pressure 134/78 142/88 H Pulse Oximetry 100 100 Oxygen Delivery Method Room Air Room Air BMI result Body Mass Index 38.4 Appearance: Alert.?Oriented to person, place and time. No acute distress.?Normal affect. Eyes: Pupils equal, round and reactive to light.? ENT: Pharynx normal.?? Neck: Normal inspection.? Neck supple.?? CVS: Heart sounds normal. Normal heart rate and rhythm.? Pulses normal.?? Respiratory: No respiratory distress.? Lung sounds clear to auscultation bilaterally?? Abdomen: Soft and non-tender. Normoactive bowel sounds. Skin: Skin warm and dry.? Normal skin color.??? Extremities: No lower extremity edema.? Neuro: Moves all extremities spontaneously. Sensation intact bilaterally. CN II-XII intact. No focal neuro deficits. Ambulates with normal steady gait. Medical Decision Making Medical Decision Making MDM Narrative: Patient is a 34 old female with past medical history of opioid use disorder on Suboxone denying any recreational drug usage who presents emergency department assistance for Suboxone dosing as per HPI. On review of records from pharmacy it appears as though last filled Suboxone prescription from [facility] was 02/13/2025 8 mg films for a total of 18 films. 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 Unfortunately [facility] today. Able to contact you know a pharmacy and confirmed that a prescription has recently been sent for the Suboxone 8 mg films daily dosing him 20 mg. It seems as though there was some issue with her insurance however the pharmacist was able to process the prescription through a ?temporary insurance?, however based on their delivery scheduled to [facility], this may not be delivered until Wednesday or Wednesday of this week meaning that she may potentially not have dosing for tomorrow as well as Wednesday. I reviewed this information with the patient. She will be dosed in the emergency department today with Suboxone 24 mg. I will send a prescription to local pharmacy [facility] on [facility] that she has access to for an additional Suboxone 8 mg films (total of 6 films) to cover her for tomorr and Wednesday. I did make her aware that due to this potential insurance issue she may have to pay out of pocket and she may run into issue with [facility] being willing to fill the prescription as they may see in the records system that a prescription is already filled from [facility], we will contact [facility] pharmacy to make them aware of the circumstances and hopes that she will not need to return to emergency department for dosing over the next 2 days. But I did make her aware that that would be a possibility if absolutely necessary Differential Diagnosis Differential Diagnoses: The differential diagnosis associated with the presentation includes (Opioid use disorder, recreational opioid usage) External Record Review External record reviewed: Outpatient record and Other I attest that I have reviewed patients [place], and at the time prescribing the patient a controlled substance is appropriate based off of patients diagnosis and treatment plan. Prescription Management I considered prescription management with: Other (See narrative above) Discharge Plan Discharge Clinical Impression: Opioid use disorder Patient Disposition: Home, Self-Care Additional Instructions: As mentioned, [facility] pharmacy states that your prescription should be delivered to [facility] either Wednesday or Wednesday Being dose in the emergency department today with Suboxone 24 mg. I will send a prescription to local pharmacy [facility] on [facility], so that you have films to cover her for tomorrow and Wednesday. As mentioned, [facility] has stated that there is a potential insurance issue, so you may have to pay out of pocket and you may run into issues with [facility] being willing to fill the prescription as they may see in the records system that a prescription is already filled from [facility], we will contact [facility] pharmacy to make them aware of the circumstances, in hopes that they will fill this for the next 2 days. If absolutely necessary you may return back to emergency department for dosing Prescriptions: New buprenorphine-naloxone [Suboxone] 8-2 mg film 3 film buccal DAILY 2 Days Qty: 6 0RF No Action nifedipine 30 mg tablet extended release 24hr PO Rx Instructions: [facility] increased dose to 60 mg while in their care. metformin 500 mg tablet 500 mg PO BID lisinopril 5 mg tablet 5 mg PO DAILY aripiprazole [Abilify] 5 mg Tablet 5 mg PO BEDTIME 30 Days Qty: 30 0RF clotrimazole 1 % Cream 1 appl vaginal BEDTIME Qty: 0 0RF divalproex 250 mg Tablet Extended Release 24 Hr 750 mg PO BEDTIME 30 Days Qty: 90 0RF methadone [Methadose] 10 mg/mL Concentrate 65 mg PO DAILY Qty: 0 0RF Rx Instructions: Partial Fill upon patient request. docusate sodium [Colace] 100 mg capsule 100 mg PO BID Qty: 60 0RF ciprofloxacin HCl 0.3 % drops 2 drp ophthalmic-Right QID 5 Days Qty: 2.5 0RF Rx Instructions: administer while awake Referrals: Physician,Unknown J [Primary Care Provider, Medical] Print Language: Mongolian
[2025-03-03] MEDS: Buprenorphine/Naloxone 8/2 mg FILM 3 FILM SUBLINGUAL (10:53)
[2025-03-03 10:57] VITALS: BP 142/88; PULSE 73; RESP 16; TEMP 36.8; O2SAT 100
== END 2025-03-03 10:58 | disposition home or self-care (01) ==
PROVIDERS: Emergency Provider Emergency Medicine
DX: F11.10 Opioid abuse, uncomplicated (principal); Z79.899 Other long term (current) drug therapy; Z71.51 Drug abuse counseling and surveillance of drug abuser
CPT/HCPCS: 99283

== ENCOUNTER 2025-03-24 21:15 | Emergency (ER) | payer MEDICARE, MEDICAID, SELFPAY ==
--- OUTSIDE RECORDS SUMMARY | 2025-02-13 09:00 | XMS_ITS ---
Author Organization [facility] e [facility] Address [address] [address] Care Team Providers Care Manager Cardiac Name Role Phone Nevaeh Larry Primary Care Provider Allergies No Known Allergies Medications Medication SIG (Take, Route, Frequency, Duration) Notes Start Date End Date Status Buprenorphine HCl-Naloxone HCl 8-2 MG Sublingual; Duration: 6 Days Active Omeprazole 20 MG Oral; Duration: 30 Days Active Problems Problem Type SNOMED Code ICD Code Onset Dates Problem Status W/U Status Risk Notes Problem Diabetes mellitu s without complication (E11.9) Active confirmed Vital Signs Temperature 96.8 degrees Fahrenheit 02/14/20 25 Blood pressure systolic 130 mm Hg 02/14/20 25 Blood pressure diastolic 96 mm Hg 025 Heart Rate 83 /min 02/13/2025 Height 64 in 02/13/2025 Weight 223.8 lbs 02/13/2025 BMI 38.41 kg/m2 02/13/2025 Oximetry 98 % 02/13/2025 Height-cm 162.56 cm 02/13/2025 Weight-kg 101.52 kg 02/13/2025 Encounters Encounter Location Date Provider Diagnosis [facility] [address] [address] 02/13/2025 Nevaeh Larry Diabetes mellitus without complication E11.9 ; Opioid use disorder F11.90 and Medication management Z79.899 Assessments Encounter Date Diagnosis (ICD Code) Assessment Notes Treatment Notes Treatment Clinical Notes Section Notes 02/13/2025 Diabetes mellitus without complication (ICD-10 - E11.9) Has not been taking her medications consistently. I was able to pull her medications list; however, the only medications listed are buprenorphine and omeprazole. PLAN ~Obtain hemoglobin A1c, CMP, TSH/T4, CBC and lipid panel ~Advised to ask the nurse at [facility] about her current medication list and call the office to update ~Dietary counseling regarding diabetic diet provided; however, it is unrealistic to maintain a diabetic diet when in and out of treatment facilities where proper diet is often not the priority. Advised to make her selection of served meals wisely. 02/13/2025 Opioid use disorder (ICD-10 - F11.90) Continue with [facility] program and speak with [facility] counselor about aftercare planning Monitor for signs of relapse or cravings and communicate to [facility] counselors Continue Suboxone as appropriate. 02/13/2025 Medication management (ICD-10 - Z79.899) For untreated bipolar disorder: ~Obtain Rockhill level, CMP and TSH level ~Advised to seek psychiatry services at [facility] for urgent re-evaluation and medication management. For interest in obesity treatment with GLP-1 ~Obtain amylase and lipase levels Of note, GLP-1 medications might be beneficial to curbing her drug addiction, based on recent clinical reports on these drugs. Plan Of Treatment Treatment Notes Assessment Notes Diabetes mellitus without complication Has not been taking her medications consistently. I was able to pull her medications list; however, the only medications listed are buprenorphine and omeprazole. PLAN ~Obtain hemoglobin A1c, CMP, TSH/T4, CBC and lipid panel ~Advised to ask the nurse at [facility] about her current medication list and call the office to update ~Dietary counseling regarding diabetic diet provided; however, it is unrealistic to maintain a diabetic diet when in and out of treatment facilities where proper diet is often not the priority. Advised to make her selection of served meals wisely. Opioid use disorder Continue with [facility] program and speak with [facility] counselor about aftercare planning Monitor for signs of relapse or cravings and communicate to [facility] counselors Continue Suboxone as appropriate. Medication management For untreated bipolar disorder: ~Obtain [place] level, CMP and TSH level ~Advised to seek psychiatry services at [facility] for urgent re-evaluation and medication management. For interest in obesity treatment with GLP-1 ~Obtain amylase and lipase levels Of note, GLP-1 medications might be beneficial to curbing her drug addiction, based on recent clinical reports on these drugs. Pending Test Test Name Order Date LIPID PANEL, STANDARD (7600) 02/13/2025 TSH+FREE T4 (69517) 02/13/2025 COMPREHENSIVE METABOLIC PANEL (95805) CBC (INCLUDES DIFF/PLT) (6399) HEMOGLOBIN A1c (496) 02/13/2025 LIPASE (606) 02/13/2025 AMYLASE (243) 02/13/2025 LITHIUM (613) 02/13/2025 Next Appt Details Follow Up: prn, Reason: Progress Notes * Radha ESPINOZAaDOB: [birth year] (34 yo F)Acc No.[id number]:02/13/2025 Progress Notes Patient: Lisa MCGARRY Provider: SIENNA East :1990 A ge:34 Y S ex:Female Date:02/13/2025 Phone: Address:[address] [place], [place] [id number] Subjective: * Chief Complaints: * * HPI: T ransition of Care: Lisa is a 34 year-old female who is here for medication management. She has a history of Type 2 Diabetes Mellitus and Opioid Use Disorder, currently residing in a Therapeutic Stabilization System (TSS) program at [facility] for approximately two months. Regarding her Opioid Use Disorder, she is on MAT with Suboxone with [facility] and states she has been sober for two years from drug use. She is a current cigarette smoker. She notes that she has not been taking her Metformin for approximately one year and has also stopped taking her Rockhill for bipolar disorder a couple of months ago. She was previously treated at [facility] in [place]. She is from [place] and is only in [place] for drug rehabilitation. Lisa is interested in weight loss with medications. * ROS: G eneral / Constitutional: Patient denies f ever, chills, night sweats, or unexplained weight changes. E ndocrine: Comments Negative for polydipsia, polyuria, or polyphagia. Reports non-adherence to Metformin for approximately one year.. M usculoskeletal: Patient denies j oint swelling, redness, or warmth. ? N eurologic: Patient denies r ecent seizures, numbness, tingling, or weakness in extremities. P sychiatric: Comments Endorseshistory of bipolar disorder.Reports non-adherence to Rockhill for a couple of months. Denies current suicidal ideation, homicidal ideation, or hallucinations. Reports current tobacco use (cigarettes). Reports being sober from drug use for two years. Currently in TSS program. * Medical History: T ype 2 diabetes. * Surgical History: D enies Past Surgical History. * Medications: T aking Buprenorphine HCl-Naloxone HCl 8-2 MG Film Sublingual , Taking Omeprazole 20 MG Capsule Delayed Release Oral * Allergies: N .K.D.A. Objective: * Vitals: B P:130/96mm Hg, HR:83/min, Temp:96.8F, Oxygen sat %:98%, Wt:223.8lbs, Wt-k.52 kg, Ht: 64 in, Ht-cm: 162.56 cm, BMI:38.41Index, Body Surface Area: 2.14. * Examination: G eneral Examination: General appearance: a lert, pleasant,obese and in no acute distress . Skin: s car upper center chest. Heart: S 1 and S2 are normal and no S3 and S4 gallop . Lungs: c lear to auscultation bilaterally, with good air movement and no rales, rhonchi or wheezes . Neurologic: a lert and oriented . Psych: a nxious appearing . Assessment: * Assessment: 1. D iabetes mellitus without complication - E11.9 (Primary) 2 . O pioid use disorder - F11.90 3 . M edication management - Z79.899 Plan: * Treatment: 2. O pioid use disorder Notes: Continue with TSS program and speak with [facility] counselor about aftercare planning Monitor for signs of relapse or cravings and communicate to [facility] counselors Continue Suboxone as appropriate. 3. M edication management L AB: LIPASE (606) L AB: AMYLASE (243) L AB: LITHIUM (613) Notes:For untreated bipolar disorder: ~Obtain [place] level, CMP and TSH level ~Advised to seek psychiatry services at [facility] for urgent re-evaluation and medication management. For interest in obesity treatment with GLP-1 ~Obtain amylase and lipase levels Of note, GLP-1 medications might be beneficial to curbing her drug addiction, based on recent clinical reports on these drugs. * Follow Up: p rn * Billing Information: * Visit Code: 70592 Office Visit, New Pt., Level 2. * Procedure Codes: * Electronic signature of PARISA Merida on 03/24/2025 at 10:04 PM EDT Sign off status: Pending * Provider: Olive Larry, COUNSEL-C Date: 0 02/13/2025 Generated for Tres Mckeon/Ozzy on: 0 03/24/2025 10:04 PM EDT History and Physical Notes * HPI (History of Present Illness) Category Sub-Category Detail Notes Category Not es Transition of Care Lisa is a 34 year-old female who is here for medication management. She has a history of Type 2 Diabetes Mellitus and Opioid Use Disorder, currently residing in a Therapeutic Stabilization System (TSS) program at [facility] for approximately two months. Regarding her Opioid Use Disorder, she is on MAT with Suboxone with [facility] and states she has been sober for two years from drug use. She is a current cigarette smoker. She notes that she has not been taking her Metformin for approximately one year and has also stopped taking her [place] for bipolar disorder a couple of months ago. She was previously treated at [facility] in [place]. She is from [place] and is only in [place] for drug rehabilitation. Lisa is interested in weight loss with medications. Examination Category Sub-Category Detail Notes Category Not es General Examination General appearance: alert, p leasant,obese and in no acute distress Heart: S1 and S2 are normal and no S3 and S4 gallop Lungs: clear to auscultatio n bilaterally, with good air movement and no rales, rhonchi or wheezes Neurologic: alert and oriented Skin: scar upper center ch est Psych: anxious appearing
[2025-03-24 21:28] VITALS: BP 135/67; PULSE 65; RESP 17; TEMP 36.8; O2SAT 99; BMI 37.8
--- OUTSIDE RECORDS SUMMARY | 2025-03-24 22:04 | XMS_ITS | Clinical Summary ---
Author Organization [facility] Address [address] [facility] [address] [place] [address] Care Team Providers Care Supervisory Training Specialist Name Role Phone Pcp, [facility] Only Unassigned Primary Care Provider Unavailable Medications Buprenorphine HCl-Naloxone HCl (Suboxone) 8-[address] 1 Film under the tongue 2 times daily. Per [facility] med list 09/28/2024 Active lisinopril 5 MG tablet Take 1 tablet by mouth Once per day. 02/09/2024 Active hydrOXYzine HCl (Atarax) 50 MG tablet Take 50 mg by mouth as needed in the morning for itching (per [facility] med list). Active metFORMIN (Glucophage) 500 MG tablet Take 500 mg by mouth with breakfast. Active ARIPiprazole (Abilify) 20 MG tablet Take 20 mg by mouth at bedtime. Active Encounters Date Type Department Care Team Description 01/26/2025 Telephone [facility] [address] [place] [phone] Nessa Power RN from Last 3 Months Social History Tobacco Use Types Packs/Day Years Used Date Smoking Tobacco: Never Assessed Comments Unknown Sex and Gender Information Value Date Recorded Sex Assigned at Female 07/06/2022 10:22 AM EDT Legal Sex Female 10:22 AM EDT Gender Identity Female 02/08/2025 1:25 PM EDT Sexual Orientation Straight 02/08/2025 1: 26 PM EDT Plan of Treatment Health Maintenance Due Date Last Done Comments Depression Screening 1990 HIV Screening 1990 SDOH Screening 1990 Disability Screening 1990 Alcohol/Substance Use Screening 2002 Tobacco Screening 2002 Family Planning (PISQ) 2005 HPV Vaccines (1 - 3-dose series) 2005 Hepatitis C Screening 2008 DTaP/Tdap/Td Vaccines (1 - Tdap) 2009 Hepatitis A Vaccines (1 of 2 - Risk 2-dose series) 2009 Hepatitis B Vaccines (1 of 3 - 19+ 3-dose series) 2009 Pap Smear 2011 Cervical Cancer Screening 2020 HPV/Cotest 2020 COVID-19 Vaccine (1 - 2023-2 5 season) 2024 Influenza Vaccine (#1) 2025 Zoster Vaccines (1 of 2) 2040 RSV Patients and Pa tients Aged 60 years or older (1 - 1-dose 75+ series) 2065 HIB Vaccines Aged Out No longer eligi ble based on patient's age to complete this topic IPV Vaccines Aged Out No longer eligi ble based on patient's age to complete this topic Meningococcal B Vaccine Aged Out No l onger eligible based on patient's age to complete this topic Meningococcal Vaccine Aged Out No pastora mona eligible based on patient's age to complete this topic Pneumococcal Vaccine: Pediat rics (0 to 5 Years) and At-Risk Patients (6 to 49) Years Aged Out No longer eligible b ased on patient's age to complete this topic RSV under 20 months Aged Out No longe r eligible based on patient's age to complete this topic Rotavirus Vaccines Aged Out No longer eligible based on patient's age to complete this topic [place] [address] [address] [place] [phone] Care Teams Supervisory Training Specialist Relationship Specialty Start Date End Date Bud Lemos Only Unassigned PCP - General Family Medicine 01/26/25
--- OUTSIDE RECORDS SUMMARY | 2025-03-24 22:04 | XMS_ITS | Encounter Summary ---
Author Organization [facility] [address] Address [address] [place] [address] Care Team Providers Care Regional Coordinator Name Role Phone Rachael Pacheco MD Primary Care Provider Encounter Details Date Type Department Care Team (Late st Contact Info) Description 07/20/[address] 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 Social History Tobacco Use [...] LDL Routine 07/20/2024 7:31 AM EST Other usp (current) drug therapy HEMOGLOBIN A1C Routine 07/20/2024 7:31 AM EST Other usp (current) drug therapy documented in this encounter Results * (ABNORMAL) Lipid panel with reflex to direct LDL (07/20/2024 7:31 AM EST) Cholesterol 216(H) 0 - 200 mg/dL LAB CHEMISTRY METHOD 07/20/2024 1:14 PM EST [facility] Triglycerides 115 0 - 150 mg/dL LAB CHEMISTRY METHOD 07/20/2024 1:14 PM EST [facility] HDL 50 >=40 mg/dL LAB CHEMISTRY METHOD 07/20/2024 1:14 PM EST [facility] LDL Calculated 143(H) 0 - 100 mg/dL LAB CHEMISTRY METHOD 07/20/2024 1:14 PM EST [facility] VLDL Cholesterol Charly 23 mg/dL LAB CHEMISTRY METHOD 07/20/2024 1:14 PM [facility] Non HDL Chol. 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
--- NOTE | 2025-03-24 22:51 | ED.GENADULT ---
HPI - General Adult General Chief complaint: Extremity Problem Stated complaint: pain in legs, nausea Time Seen by Provider: 03/24/25 22:51 History of Present Illness ED Provider: Zacarias VILLANUEVA narrative: The patient is a 34-year-old woman who lives at the [facility]. She says that it is a residential program for recovering drug abuse. She has live there about 4 or 5 months. She comes to the emergency room tonight planing of 2 days of restless discomfort in her legs. She says that someone from the program dropped her off of the hospital. With the triage nurse she complained of nausea but she denied nausea with me. The patient had fallen asleep on the hospital stretcher while waiting to be seen. She awoke fairly easily to verbal stimuli. Related Data Home Medications ?Medication ?Instructions ?Recorded ?Confirmed lisinopril 5 mg tablet 5 mg PO DAILY 09/17/23 09/17/23 metformin 500 mg tablet 500 mg PO BID 09/17/23 09/17/23 nifedipine 30 mg tablet,extended PO 09/17/23 release 24 hr Previous Rx's ?Medication ?Instructions ?Recorded docusate sodium 100 mg capsule 100 mg PO BID #60 caps 05/19/23 (Colace) aripiprazole 5 mg tablet (Abilify) 5 mg PO BEDTIME 30 days #30 tabs 09/23/23 clotrimazole 1 % vaginal cream 1 appl vaginal BEDTIME #0 grams 09/23/23 divalproex 250 mg tablet,extended 750 mg (3 x 250 mg) PO BEDTIME 30 09/23/23 release 24 hr days #90 tabs methadone 10 mg/mL oral 65 mg (6.5 mL) PO DAILY #0 mL 09/23/23 concentrate (Methadose) ciprofloxacin HCl 0.3 % eye drops 2 drp ophthalmic-Right QID 5 days 03/01/25 #2.5 mL buprenorphine 8 mg-naloxone 2 mg 3 film buccal DAILY 2 days #6 ea 03/03/25 sublingual film (Suboxone) ibuprofen 400 mg tablet 400 mg PO Q6H PRN pain #14 tabs 03/25/25 Allergies Allergy/AdvReac Type Severity Reaction Status Date / Time No Known Allergies Allergy Verified 03/24/25 21:29 Review of Systems Review of Systems: Yes all other systems are reviewed and are negative PMFSH Past Medical History Medical History Medical clearance for psychiatric admission Opiate dependence Mood disorder Anxiety Opiate use Surgical History Previous section S/P cholecystectomy Social History Social History Household Members: Unknown / Unable to assess Housing: Unknown / Unable to assess Do you presently have visiting nurse or other home services: No Alcohol intake: never Patient Tobacco Use Status: Former Tobacco user e-Cigarette/Vaping Use: Former Use Second Hand Smoke Exposure: Yes Substance Use Type: Crack/Cocaine Advance Directives: No Advance Directives Information Provided: No Do you have a plan to hurt others: No Plan service: No Sexual orientation: Unable to collect Physical Exam ED Vital Signs: Vital Signs - 24 hr 03/24/25 21:28 03/25/25 00:01 03/25/25 01:45 Temperature 98.2 F 97.9 F 97.9 F Pulse Rate 65 65 65 Respiratory Rate 17 14 14 Blood Pressure 135/67 118/69 118/69 Pulse Oximetry 99 99 99 Oxygen Delivery Method Room Air Room Air Room Air BMI result Body Mass Index 37.8 Const Other: The patient seemed to be sleeping when I 1st entered the room. After saying her name a few times she woke up seemed to be fatigued but not acutely ill. HENMT Other: The face is symmetrical. ?Mucous membranes moist. Eyes Other: Pupils are round equal, conjunctivae are clear, extraocular movements intact Neck Neck: Yes normal visual inspection and Yes full ROM Resp Effort & Inspection: normal respiratory effort Auscultation: clear to auscultation bilaterally Cardio Rate: regular rate Rhythm: regular rhythm Heart sounds: S1 normal heart sound present and S2 normal heart sound present GI Other: Abdomen is soft and nontender Skin Other: Skin is dry and unremarkable Neuro Other: The patient was sleeping. She awoke easily to a normal mental status. Cranial nerves are grossly intact. She seems to have symmetrical tone and strength in her extremities. Extrem Other: No peripheral edema. The legs appear symmetrical and normal. Mild diffuse tenderness of both lower legs. No asymmetry. Medications Administered Discontinued Medications Generic Name Dose Route Start Last Admin Trade Name Freq PRN Reason Stop Dose Admin Acetaminophen 975 mg 03/25/25 01:23 03/25/25 01:36 Acetaminophen 325 Mg Tablet PO 03/25/25 01:24 975 mg ONCE ONE Administration Ibuprofen 400 mg 03/25/25 01:23 03/25/25 01:36 Ibuprofen 400 Mg Tablet PO 03/25/25 01:24 400 mg ONCE ONE Administration Medical Decision Making Medical Decision Making [facility] Narrative: the patient is a 34-year-old female who presented with a complaint of restless bilateral lower extremity leg discomfort and nausea. When I saw her she was asleep and did not seem uncomfortable. When I spoke to her after waking her she was very vague about her symptoms. She denied any injury. She did not seem in distress. She does not seem ill. Her physical exam seems very unremarkable. Her vital signs are unremarkable. I do not think she has any findings to suggest that she has any kind of a DVT. Labs were done that are unremarkable although she has a bit of a lymphocytosis. She was reassured that no dangerous process seemed to be at work. She was advised that she could use ibuprofen and acetaminophen as needed for discomfort and that she should follow up with her PCP if she has a ongoing problems. She seems comfortable with this plan and seemed eager to be discharged from the emergency room. She said she would call her program for a ride home. Lab Data 03/25/25 00:27 03/25/25 00:27 Labs: Lab Results 03/25/25 Range/Units 00:27 WBC 7.6 (4.8-10.8) X10*3/uL RBC 4.46 (4.20-5.50) X10*6/uL Hgb 10.0 L (12.0-16.0) g/dl Hct 29.9 L (37.0-47.0) % MCV 67.0 L (80.0-98.0) fL MCH 22.4 L (27.0-33.0) pg MCHC 33.4 (31.0-35.0) g/dl RDW 14.0 (11.0-16.0) % Plt Count 248 (160-400) X10*3/uL MPV 8.8 L (9.4-12.3) fL Immature Gran % (Auto) 0.3 (0.0-0.4) % Neut % (Auto) 29.9 L (45-73) % Lymph % (Auto) 62.3 H (20-40) % Bartholomew % (Auto) 4.1 (2-11) % Eos % (Auto) 2.9 (0-4) % Baso % (Auto) 0.5 (0-2) % Lymph # (Auto) 4.8 (1.2-4.9) X10*3/uL Bartholomew # (Auto) 0.3 (0.1-1.2) X10*3/uL Eos # (Auto) 0.2 (0.0-0.4) X10*3/uL Baso # (Auto) 0.0 (0.0-0.2) X10*3/uL Abs Immat Gran (auto) 0.02 (0.00-0.03) X10*3/uL Absolute Neuts (auto) 2.3 (2.0-8.3) x10*3/uL Absolute Nucleated RBC 0.000 (0.0-0.012) X10*3/uL Nucleated RBC % (auto) 0.0 (0.0-0.2) /100WBC Smear Tech's Comments VERIFIED Sodium 141 (135-145) mmol/L Potassium 3.5 (3.3-5.1) mmol/L Chloride 107 (96-108) mmol/L Carbon Dioxide 25 (22-29) mmol/L Anion Gap 13 (12-20) BUN 11 (9-16) mg/dL Creatinine 0.70 (0.5-1.4) mg/dL Estim Creat Clear Calc 130.0 Estimated GFR > 60 Random Glucose 113 (60-115) mg/dL Calcium 8.6 D (8.4-10.2) mg/dL Magnesium 1.9 (1.6-2.6) mg/dL Total Bilirubin 0.1 (0.0-1.0) mg/dL Direct Bilirubin < 0.2 (0.0-0.5) mg/dL AST 18 (5-31) U/L ALT 15 (0-31) U/L Alkaline Phosphatase 52 (39-117) U/L C-Reactive Protein 0.32 (< or = 0.50) mg/dL Total Protein 7.0 (6.5-8.0) g/dL Albumin 4.3 (3.5-5.0) g/dL Beta HCG, Quant < 2 mIU/mL Influenza Type A (PCR) NEGATIVE (Negative) Influenza Type B (PCR) NEGATIVE (Negative) RSV RNA Qual (PCR) NEGATIVE (Negative) SARS-CoV-2 RNA (RT-PCR) NEGATIVE (Negative) Discharge Plan Discharge Clinical Impression: Bilateral leg pain Patient Disposition: Home, Self-Care Additional Instructions: Your testing in the emergency room today seems very reassuring. I think it would be reasonable for you to try ibuprofen to see if it helps with your discomfort. I have sent a prescription to your pharmacy. Please contact your regular doctor's office on Wednesday for a follow up appointment to discuss your symptoms further. Return to the emergency room if significantly worse. Prescriptions: New ibuprofen 400 mg tablet 400 mg PO Q6H PRN (Reason: pain) Qty: 14 0RF No Action nifedipine 30 mg tablet extended release 24hr PO Rx Instructions: [facility] increased dose to 60 mg while in their care. metformin 500 mg tablet 500 mg PO BID lisinopril 5 mg tablet 5 mg PO DAILY aripiprazole [Abilify] 5 mg Tablet 5 mg PO BEDTIME 30 Days Qty: 30 0RF clotrimazole 1 % Cream 1 appl vaginal BEDTIME Qty: 0 0RF divalproex 250 mg Tablet Extended Release 24 Hr 750 mg PO BEDTIME 30 Days Qty: 90 0RF methadone [Methadose] 10 mg/mL Concentrate 65 mg PO DAILY Qty: 0 0RF Rx Instructions: Partial Fill upon patient request. docusate sodium [Colace] 100 mg capsule 100 mg PO BID Qty: 60 0RF ciprofloxacin HCl 0.3 % drops 2 drp ophthalmic-Right QID 5 Days Qty: 2.5 0RF Rx Instructions: administer while awake buprenorphine-naloxone [Suboxone] 8-2 mg film 3 film buccal DAILY 2 Days Qty: 6 0RF Referrals: [facility] [Provider Group] Referral Note: Bilateral leg pain Interventions: ED Discharge Assessment Last Done: 03/25/25 01:45 Discharge Date/Time: 03/25/25 01:40 Print Language: Occitan
--- NOTE | 2025-03-24 23:13 | ECG_ITS ---
Test Reason : WEAKNESS Blood Pressure : */* mmHG Vent. Rate : 64 BPM Atrial Rate : 64 BPM P-R Int : 204 ms QRS Dur : 98 ms QT Int : 440 ms P-R-T Axes : 34 60 26 degrees QTcB Int : 453 ms Normal sinus rhythm Normal ECG No previous ECGs available Referred By: Armaan Adames Electronically Signed By: IVETH BAILEY
[2025-03-25 00:01] VITALS: BP 118/69; PULSE 65; RESP 14; TEMP 36.6; O2SAT 99
[2025-03-25 00:34] LABS: Hematocrit 29.9 % (37.0-47.0); Hemoglobin 10.0 g/dl (12.0-16.0); Imm Gran Abs Auto 0.02 X10*3/uL (0.00-0.03); Imm Gran Pct Auto 0.3 % (0.0-0.4); Lymphocytes Absolute Auto 4.8 X10*3/uL (1.2-4.9); MANUAL DIFF FLAG SCAN; Mean Corpuscular HGB Conc 33.4 g/dl (31.0-35.0); Mean Corpuscular Hemoglobin 22.4 pg (27.0-33.0); Mean Corpuscular Volume 67.0 fL (80.0-98.0); NRBC Abs Auto 0.000 X10*3/uL (0.0-0.012); NRBC Pct Auto 0.0 /100WBC (0.0-0.2); Platelet Count 248 X10*3/uL (160-400); Red Blood Count 4.46 X10*6/uL (4.20-5.50); SCAN SMEAR FLAG 1; White Blood Count 7.6 X10*3/uL (4.8-10.8)
[2025-03-25 00:48] LABS: Alanine Aminotransferase 15 U/L (0-31); Albumin Level 4.3 g/dL (3.5-5.0); Alkaline Phosphatase 52 U/L (39-117); Anion Gap 13 (12-20); Aspartate Amino Transferase 18 U/L (5-31); Blood Urea Nitrogen 11 mg/dL (9-16); Calcium 8.6 mg/dL (8.4-10.2); Carbon Dioxide 25 mmol/L (22-29); Chloride 107 mmol/L (96-108); Creatinine Clr Calc Pharmacy 130.0; Estimated Glomerular Filt Rate > 60; Magnesium 1.9 mg/dL (1.6-2.6); Potassium 3.5 mmol/L (3.3-5.1); Sodium 141 mmol/L (135-145); Total Protein 7.0 g/dL (6.5-8.0)
[2025-03-25 01:10] LABS: Resp Syncy Virus RNA Qual PCR NEGATIVE (Negative); SARS COV2 PCR INHOUSE NEGATIVE (Negative)
[2025-03-25 01:45] VITALS: BP 118/69; PULSE 65; RESP 14; TEMP 36.6; O2SAT 99
== END 2025-03-25 01:40 | disposition home or self-care (01) ==
PROVIDERS: Emergency Provider Emergency Medicine
DX: M79.605 Pain in left leg (principal); M79.604 Pain in right leg; F31.9 Bipolar disorder, unspecified; F11.20 Opioid dependence, uncomplicated; Z03.818 Encounter for observation for suspected exposure to other biological agents ruled out
CPT/HCPCS: 36415; 80048; 80076; 83735; 84702; 85025; 86140; 87637; 93005; 99283; 99284

== ENCOUNTER → 2025-03-24 23:13 | Outpatient (BNV) | payer MEDICARE, MEDICAID, SELFPAY | PROVIDERS: Emergency Provider Emergency Medicine; Visit Provider Internal Medicine | DX: R53.1 Weakness (principal) | CPT/HCPCS: 93010 ==